=== PATIENT | female | born 1965 | race African-American/Black ===

== ENCOUNTER 2016-07-10 11:11 | Observation (INO) | payer BC ==
[2016-07-10] MEDS ORDERED: ASPIRIN 81 MG TABLET, CHEWABLE PO ONE (11:17)
--- NOTE | 2016-07-10 11:29 | ER Document Report ---
ED Medical Screen (RME) - General Chief Complaint: Chest Pain > 30 Stated Complaint: CHEST PAIN AND SHORTNESS OF BREATH Time Seen by Provider: 07/10/16 11:24 Notes: 50-year-old female with past medical history as recorded including and an STEMI in 2014 who presents with the onset yesterday of some intermittent pressure to her chest. No aggravating relieving factors. No radiation. No calf pain, leg swelling, nausea, vomiting, or fevers. Very minimal shortness of breath. EKG shows no obvious ST elevation. TRAVEL OUTSIDE OF THE [place] IN LAST 30 DAYS: No - Related Data Allergies/Adverse Reactions: sulfamethoxazole [From ] Allergy (Verified 07/10/16 11:14) trimethoprim [From ] Allergy (Verified 07/10/16 11:14) Past Medical History - Past Medical History Cardiac Medical History: Reports: Hx Heart Attack - 04/2014, Hx Hypercholesterolemia, Hx Hypertension Pulmonary Medical History: Reports: Hx Asthma Renal/ Medical History: Denies: Hx Peritoneal Dialysis Musculoskeltal Medical History: Reports Hx Arthritis Past Surgical History: Reports: Hx Breast Surgery - breast reduction, Hx Cardiac Catheterization - w/ failed stent, Hx Gastric Bypass Surgery, Hx Orthopedic Surgery - left shouldar - Immunizations Hx Diphtheria, Pertussis, Tetanus Vaccination: Yes Physical Exam - Vital signs Vitals: Temp Pulse Resp BP Pulse Ox 98.0 F 68 16 136/50 H 99 07/10/16 11:15 07/10/16 11:15 07/10/16 11:15 07/10/16 11:15 07/10/16 11:15 Course - Vital Signs Vital signs: Temp Pulse Resp BP Pulse Ox 98.0 F 68 16 136/50 H 99 07/10/16 11:15 07/10/16 11:15 07/10/16 11:15 07/10/16 11:15 07/10/16 11:15
--- NOTE | 2016-07-10 11:40 | ER Document Report ---
ED General - General Chief Complaint: Chest Pain > 30 Stated Complaint: CHEST PAIN AND SHORTNESS OF BREATH Time Seen by Provider: 07/10/16 11:24 Mode of Arrival: Ambulatory Information source: Patient Notes: 50-year-old female history of CO with no reactions intervention due to the size of the artery presents with complaints of chest pain. Patient notes his chest pain is different from her previous CO. Patient has been intermittent. TRAVEL OUTSIDE OF THE [place] IN LAST 30 DAYS: No - Related Data Allergies/Adverse Reactions: sulfamethoxazole [From ] Allergy (Verified 07/10/16 11:14) trimethoprim [From Octra] Allergy (Verified 07/10/16 11:14) Past Medical History - Social History Smoking Status: Never Smoker Cigarette use (# per day): No Chew tobacco use (# tins/day): No Smoking Education Provided: No Family History: Reviewed & Not Pertinent Patient has suicidal ideation: No Patient has homicidal ideation: No - Past Medical History Cardiac Medical History: Reports: Hx Heart Attack - 04/2014, Hx Hypercholesterolemia, Hx Hypertension Pulmonary Medical History: Reports: Hx Asthma Renal/ Medical History: Denies: Hx Peritoneal Dialysis Musculoskeltal Medical History: Reports Hx Arthritis Past Surgical History: Reports: Hx Breast Surgery - breast reduction, Hx Cardiac Catheterization - w/ failed stent, Hx Gastric Bypass Surgery, Hx Orthopedic Surgery - left shouldar - Immunizations Hx Diphtheria, Pertussis, Tetanus Vaccination: Yes Hx Pneumococcal Vaccination: 02/25/13 Review of Systems - Review of Systems Notes: PHYSICAL EXAMINATION: GENERAL: Well-appearing, well-nourished and in no acute distress. HEAD: Atraumatic, normocephalic. EYES: Pupils equal round and reactive to light, extraocular movements intact, conjunctiva are normal. ENT: Nares patent, oropharynx clear without exudates. Moist mucous membranes. NECK: Normal range of motion, supple without lymphadenopathy LUNGS: Breath sounds clear to auscultation bilaterally and equal. No wheezes rales or rhonchi. HEART: Regular rate and rhythm without murmurs ABDOMEN: Soft, nontender, nondistended abdomen. No guarding, no rebound. No masses appreciated. Female : deferred Musculoskeletal: Normal range of motion, no pitting or edema. No cyanosis. NEUROLOGICAL: Cranial nerves grossly intact. Normal speech, normal gait. Normal sensory, motor exams PSYCH: Normal mood, normal affect. SKIN: Warm, Dry, normal turgor, no rashes or lesions noted. Physical Exam - Vital signs Vitals: Temp Pulse Resp BP Pulse Ox 98.0 F 68 16 136/50 H 99 07/10/16 11:15 07/10/16 11:15 07/10/16 11:15 07/10/16 11:15 07/10/16 11:15 Course - Re-evaluation Re-evalutation: 07/10/16 12:07 Lab work cardiac enzymes are pending at this time, patient will require admission for an ACS rule out given her cardiac history 07/10/16 13:16 Procedure Cedric enzymes EKG are normal. Patient will be admitted to hospital service for rule out - Vital Signs Vital signs: Temp Pulse Resp BP Pulse Ox 98.0 F 68 14 112/78 100 07/10/16 11:15 07/10/16 11:15 07/10/16 13:01 07/10/16 13:01 07/10/16 13:00 - Laboratory Result Diagrams: 07/10/16 11:35 07/10/16 11:35 Laboratory results interpreted by me: 07/10/16 07/10/16 11:35 11:35 Seg Neutrophils % 40.4 L Lymphocytes % 48.8 H Sodium 145.2 H - Diagnostic Test Radiology reviewed: Image reviewed, Reports reviewed - EKG Interpretation by Mt EKG shows normal: Sinus rhythm, [place], Intervals, QRS Complexes Discharge - Discharge Clinical Impression: Chest pain Qualifiers: Chest pain type: unspecified Qualified Code(s): R07.9 - Chest pain, unspecified Coronary artery disease Qualifiers: Coronary Disease-Associated Artery/Lesion type: unspecified vessel or lesion type [place] vs. transplanted heart: [place] heart Associated angina: without angina Qualified Code(s): I25.10 - Atherosclerotic heart disease of [place] coronary artery without angina pectoris Condition: Stable Disposition: ADMITTED OBSERVATION Admitting Provider: Hospitalist Unit Admitted: Telemetry
[2016-07-10 11:51] LABS: ABSOLUTE EOSINOPHILS # (AUTO) 0.3 10^3/uL (0.0-0.6); ABSOLUTE LYMPHOCYTES (AUTO) 2.9 10^3/uL (0.5-4.7); ABSOLUTE MONOCYTES (AUTO) 0.3 10^3/uL (0.1-1.4); ABSOLUTE NEUT (AUTO) 2.4 10^3/uL (1.7-8.2); BASOPHILS % (AUTO) 0.8 % (0-2); EOSINOPHILS % (AUTO) 5.1 % (0-6); HEMATOCRIT 42.4 % (36.0-47.0); HEMOGLOBIN 14.5 g/dL (12.0-15.5); HGB HCT DIFFERENCE 1.1; LYMPHOCYTES % (AUTO) 48.8 % (13-45); MEAN CORPUSCULAR HEMOGLOBIN 32.5 pg (27.0-33.4); MEAN CORPUSCULAR HGB CONC 34.2 g/dL (32.0-36.0); MEAN CORPUSCULAR VOLUME 95 fl (80-97); MONOCYTES % (AUTO) 4.9 % (3-13); RED BLOOD COUNT 4.45 10^6/uL (3.72-5.28); RED CELL DISTRIBUTION WIDTH 11.7 % (11.5-14.0); SEGMENTED NEUTROPHILS % (AUTO) 40.4 % (42-78); WHITE BLOOD COUNT 5.9 10^3/uL (4.0-10.5)
[2016-07-10 12:11] LABS: ANION GAP 9 (5-19); BLOOD UREA NITROGEN 11 mg/dL (7-20); CALCIUM 9.5 mg/dL (8.4-10.2); CARBON DIOXIDE 30 mmol/L (22-30); CHLORIDE 106 mmol/L (98-107); CREATININE RESULT 0.74 mg/dL (0.52-1.25); GLUCOSE 85 mg/dL (75-110); POTASSIUM 3.8 mmol/L (3.6-5.0); SODIUM 145.2 mmol/L (137-145)
[2016-07-10 12:24] LABS: TROPONIN I < 0.012 ng/mL
[2016-07-10] MEDS ORDERED: ONDANSETRON HCL INJ/PF 4 MG/2 ML SDV IV PRN (14:05)
[2016-07-10] MEDS ORDERED: ACETAMINOPHEN 325 MG TABLET PO PRN (14:05)
[2016-07-10] MEDS ORDERED: ZOLPIDEM TARTRATE 5 MG TABLET PO PRN (14:05)
[2016-07-10] MEDS ORDERED: NITROGLYCERIN 0.4 MG/TAB 25 TAB/BOTTLE SL PRN (14:14)
--- NOTE | 2016-07-10 14:31 | PDOC H&P ---
History of Present Illness Admission Date/PCP: 07/10/16 13:36 Patient complains of: Chest pain History of Present Illness: VALARIE MICHELE is a 50 year old female, with history of coronary artery disease, fibromyalgia presents to the hospital because of chest pain of 3 days' duration. It is located on the left side, localized, associated with some shortness of breath on exertion. There is no diaphoresis, nausea or vomiting, palpitation, dizziness or lightheadedness. Pain is more exertional, relieved by rest. Symptoms are worse on and off until earlier today upon waking up, pain recurred, with associated shortness of breath on climbing up steps, patient went to rest but symptoms did not resolve. Patient was concerned and therefore drove herself up-to-date emergency room where she was given aspirin and her symptoms improved. She had a cardiac catheterization years ago and was told she has coronary artery disease but is not amenable to stent on the bottom of her heart. Likewise she had a recent stress test done with her account manager relief in [place], [place] a few months ago. Past Medical History Past Medical History: Medication reconciliation pending verification from the patient's pharmacist Cardiac Medical History: Reports: Myocardial Infarction - 04/2014, Hypertension Pulmonary Medical History: Reports: Asthma Musculoskeltal Medical History: Reports: Arthritis, Fibromyalgia Past Surgical History Past Surgical History: Reports: Cardiac Catheterization - w/ failed stent, Gastric Bypass Surgery, Orthopedic Surgery - left shouldar, Other - Breast reduction Social History Information Source: Patient Smoking Status: Never Smoker Frequency of Alcohol Use: None Hx Recreational Drug Use: No Drugs: None - Advance Directive Resuscitation Status: Full Code Family History Family History: CVA, Malignancy - Stomach cancer and brain cancer, Other - Congestive heart failure Parental Family History Reviewed: Yes Children Family History Reviewed: Yes Sibling(s) Family History Reviewed.: Yes Medication/Allergy Home Medications: Albuterol 2 puff IH Q4H PRN 06/19/11 Cyclobenzaprine HCl [Flexeril 10 Mg Tablet] 10 mg PO TIDP PRN 06/19/11 Amlodipine Bes/Olmesartan Med [Alberto 5-40 mg Tablet] 1 tab PO QHS 05/20/14 Gabapentin 1,200 mg PO QHS 05/20/14 Montelukast Sodium [Singulair] 10 mg PO DAILY 05/20/14 Nitroglycerin 0.4 mg SL ASDIR PRN 05/20/14 Acetaminophen with Codeine [Tylenol #3 Tablet] 1 each PO Q4HP PRN #30 tablet Aspirin [Aspirin 81 mg Chewable Tablet] 07/09/14 Atorvastatin Calcium 40 mg 07/09/14 Nebivolol HCl [Bystolic 5 mg Tablet] 5 mg 07/09/14 Prasugrel Hydrochloride [Effient] 10 mg PO 07/09/14 Promethazine HCl 07/09/14 Ranolazine [Ranexa 500 mg Tab.sr] 07/09/14 Cyclobenzaprine HCl [Flexeril 5 mg Tablet] 5 mg PO TID #15 tablet 10/18/15 Hydrocodone/Acetaminophen [[place] 5-325 mg Tablet] 1 tab PO QID PRN #15 tablet Omeprazole Magnesium [Prilosec Otc] 20 mg PO BID #40 tablet. 11/23/15 Sucralfate [Carafate 1 gm Tablet] 1 gm PO QID #40 tablet 11/23/15 Allergies/Adverse Reactions: sulfamethoxazole [From ] Allergy (Verified 07/10/16 11:14) trimethoprim [From Octra] Allergy (Verified 07/10/16 11:14) Review of Systems Constitutional: ABSENT: chills, fever(s), headache(s), weakness, weight gain, weight loss Eyes: ABSENT: visual disturbances Ears: ABSENT: hearing changes Nose, Mouth, and Throat: ABSENT: mouth pain, sore throat Cardiovascular: PRESENT: chest pain, dyspnea on exertion. ABSENT: edema, orthropnea, palpitations Respiratory: ABSENT: cough, hemoptysis, sputum Gastrointestinal: PRESENT: nausea. ABSENT: abdominal pain, coffee ground emesis , constipation, diarrhea, hematemesis, hematochezia, vomiting Genitourinary: ABSENT: difficulty urinating, dysuria, hematuria Musculoskeletal: ABSENT: joint swelling Integumentary: ABSENT: rash, wounds Neurological: ABSENT: abnormal gait, abnormal speech, confusion, dizziness, focal weakness, syncope Psychiatric: ABSENT: anxiety, depression, homidical ideation, suicidal ideation Endocrine: ABSENT: cold intolerance, heat intolerance, polydipsia, polyuria Hematologic/Lymphatic: ABSENT: easy bleeding, easy bruising Physical Exam Vital Signs: Temp Pulse Resp BP Pulse Ox 98.0 F 68 14 112/78 100 07/10/16 11:15 07/10/16 11:15 07/10/16 13:01 07/10/16 13:01 07/10/16 13:00 General appearance: PRESENT: no acute distress, obese Head exam: PRESENT: atraumatic, normocephalic Eye exam: PRESENT: conjunctiva pink, EOMI, PERRLA. ABSENT: scleral icterus Ear exam: PRESENT: normal external ear exam. ABSENT: drainage Mouth exam: PRESENT: moist, neck supple, tongue midline Throat exam: ABSENT: post pharyngeal erythema, tonsillar erythema Neck exam: ABSENT: carotid bruit, JVD, lymphadenopathy, thyromegaly Respiratory exam: PRESENT: clear to auscultation barron. ABSENT: rales, rhonchi, wheezes Cardiovascular exam: PRESENT: RRR. ABSENT: diastolic murmur, rubs, systolic murmur Pulses: PRESENT: normal dorsalis pedis pul Vascular exam: PRESENT: normal capillary refill GI/Abdominal exam: PRESENT: normal bowel sounds, soft. ABSENT: distended, guarding, mass, organolmegaly, rebound, tenderness Rectal exam: PRESENT: deferred Extremities exam: PRESENT: full ROM. ABSENT: calf tenderness, clubbing, pedal edema Musculoskeletal exam: PRESENT: tenderness - Reproducible over the left chest wall but the patient reports this is a different pain Neurological exam: PRESENT: alert, awake, oriented to person, oriented to place , oriented to time, oriented to situation Psychiatric exam: PRESENT: appropriate affect, normal mood. ABSENT: homicidal ideation, suicidal ideation Skin exam: PRESENT: dry, intact, warm. ABSENT: cyanosis, rash Results Impressions: Chest X-Ray 07/10/16 11:28 IMPRESSION: Thoracic spondylosis with no acute cardiopulmonary disease. Assessment & Plan - Diagnosis (1) Chest pain Qualifiers: Chest pain type: unspecified Qualified Code(s): R07.9 - Chest pain, unspecified Is this a current diagnosis for this admission?: Yes (2) Coronary artery disease Qualifiers: Coronary Disease-Associated Artery/Lesion type: unspecified vessel or lesion type [place] vs. transplanted heart: [place] heart Associated angina: with unstable angina Qualified Code(s): I25.110 - Atherosclerotic heart disease of [place] coronary artery with unstable angina pectoris Is this a current diagnosis for this admission?: Yes (3) Asthma Qualifiers: Asthma severity: unspecified severity Asthma complication type: uncomplicated Qualified Code(s): J45.909 - Unspecified asthma, uncomplicated Is this a current diagnosis for this admission?: Yes (4) Fibromyalgia Is this a current diagnosis for this admission?: Yes (5) Spondylosis Qualifiers: Spinal region: thoracic Spinal osteoarthritis complication: without myelopathy or radiculopathy Qualified Code(s): M47.814 - Spondylosis without myelopathy or radiculopathy, thoracic region Is this a current diagnosis for this admission?: Yes - Time Time Spent: 50 to 70 Minutes - Plan Summary Plan Summary: The patient will be admitted to observation. We will begin aspirin, Nitropaste and as needed sublingual nitroglycerin. Supplemental oxygen will be given, as well as DVT prophylaxis with Lovenox. I will continue the patient's Ranexa. We will consult cardiology for further evaluation. Obtain stress test report as outpatient from her account manager relief. Serial cardiac enzymes 3, obtain a d- dimer. DVT prophylaxis with Lovenox will be given. Further testing depends and initial evaluations outlined above.
[2016-07-10 15:41] LABS: CREATINE KINASE MB 0.53 ng/mL (<4.55)
[2016-07-10 15:43] LABS: TROPONIN I < 0.012 ng/mL
[2016-07-10] MEDS: DOCUSATE SODIUM 100 MG CAPSULE PO SCH (18:49)
[2016-07-10] MEDS: NITROGLYCERIN 2% OINTMENT 1 GM PACKET TP SCH (18:49)
[2016-07-10] MEDS: RANOLAZINE 500 MG TAB.SR.12H PO SCH (21:33)
[2016-07-10] MEDS ORDERED: GABAPENTIN 400 MG CAPSULE PO SCH (22:00)
[2016-07-10] MEDS ORDERED: AMLODIPINE BESYLATE 5 MG TABLET PO SCH (22:00)
[2016-07-10] MEDS ORDERED: LOSARTAN POTASSIUM 50 MG TABLET PO SCH (22:00)
[2016-07-10] MEDS ORDERED: AMLODIPINE BES PO SCH (22:00)
[2016-07-10] MEDS ORDERED: OLMESARTAN MED PO SCH (22:00)
[2016-07-10] MEDS ORDERED: (PENDING PHARMACY ID) (Gabapentin [Gabapentin] 1,200 MG) PO SCH (22:00)
[2016-07-10 22:08] LABS: CREATINE KINASE MB 0.47 ng/mL (<4.55)
[2016-07-10 22:10] LABS: TROPONIN I < 0.012 ng/mL
--- NOTE | 2016-07-10 22:14 | EKG REPORT ---
SEVERITY:- BORDERLINE ECG - SINUS RHYTHM BORDERLINE T ABNORMALITIES, ANT-LAT LEADS : Confirmed by: Kelsy Davis MD 10-Jul-2016 22:13:55
[2016-07-11] MEDS: NITROGLYCERIN 2% OINTMENT 1 GM PACKET TP SCH ×4 (02:13→18:00)
[2016-07-11 03:35] VITALS: BP 111/51
[2016-07-11 03:53] LABS: CREATINE KINASE MB 0.44 ng/mL (<4.55)
[2016-07-11 03:55] LABS: TROPONIN I < 0.012 ng/mL
[2016-07-11] MEDS ORDERED: LANSOPRAZOLE 30 MG TAB.RAP.DR PO SCH (06:00)
[2016-07-11] MEDS ORDERED: ENOXAPARIN SODIUM INJ 40 MG/0.4 ML DISP.SYRIN SUBCUT SCH (08:00)
[2016-07-11] MEDS ORDERED: NEBIVOLOL HCL 5 MG TABLET PO SCH (10:00)
[2016-07-11] MEDS: DOCUSATE SODIUM 100 MG CAPSULE PO SCH ×2 (10:00→18:00)
[2016-07-11] MEDS ORDERED: ATORVASTATIN CALCIUM 40 MG TABLET PO SCH (10:00)
[2016-07-11] MEDS: RANOLAZINE 500 MG TAB.SR.12H PO SCH (10:00)
[2016-07-11] MEDS ORDERED: ASPIRIN 325 MG TABLET PO SCH (10:00)
--- NOTE | 2016-07-11 23:08 | PDOC CONSULTATION ---
Consultation Consult Date: 07/10/16 Attending physician:: HARSH MCKEON MD Consult reason:: Chest pain History of Present Illness Admission Date/PCP: 07/10/16 14:05 Patient complains of: Chest pain History of Present Illness: VALARIE MICHELE is a 50 year old female, with history of coronary artery disease, fibromyalgia presents to the hospital because of chest pain of 3 days' duration. It is located on the left side, localized, associated with some shortness of breath on exertion. There is no diaphoresis, nausea or vomiting, palpitation, dizziness or lightheadedness. Pain is more exertional, relieved by rest. Symptoms are worse on and off until earlier today upon waking up, pain recurred, with associated shortness of breath on climbing up steps, patient went to rest but symptoms did not resolve. Patient was concerned and therefore drove herself up-to-date emergency room where she was given aspirin and her symptoms improved. She had a cardiac catheterization years ago and was told she has coronary artery disease but is not amenable to stent on the bottom of her heart. Likewise she had a recent stress test done with her hose inspector and patcher in [place], [place] a few months ago. Patient on questioning does admit to difficulty falling asleep and staying asleep. She also describes habitual fatigue and tiredness. Past Medical History Cardiac Medical History: Reports: Myocardial Infarction - 04/2014, Hyperlipidema , Hypertension Pulmonary Medical History: Reports: Asthma Musculoskeltal Medical History: Reports: Arthritis, Fibromyalgia Psychiatric Medical History: Reports: Depression Past Surgical History Past Surgical History: Reports: Cardiac Catheterization - w/ failed stent, Gastric Bypass Surgery, Orthopedic Surgery - left shouldar, Other - Breast reduction Social History Smoking Status: Never Smoker Frequency of Alcohol Use: None Hx Recreational Drug Use: No Drugs: None Hx Prescription Drug Abuse: No - Advance Directive Resuscitation Status: Full Code Family History Family History: CVA, Malignancy - Stomach cancer and brain cancer, Other - Congestive heart failure Parental Family History Reviewed: Yes Children Family History Reviewed: Yes Sibling(s) Family History Reviewed.: Yes Medication/Allergy Home Medications: Albuterol Sulfate [Proair HFA] 2 puff IH Q4HP PRN 07/10/16 Amlodipine Bes/Olmesartan Med [Alberto 5-40 mg Tablet] 1 tab PO QHS 07/10/16 Atorvastatin Calcium [Lipitor 40 mg Tablet] 40 mg PO QHS 07/10/16 Cyclobenzaprine HCl [Flexeril 10 mg Tablet] 10 mg PO TIDP PRN 07/10/16 Furosemide [Lasix 20 mg Tablet] 20 mg PO DAILY 07/10/16 Isosorbide Mononitrate [Imdur 30 mg Tablet.er] 30 mg PO QHS 07/10/16 Lorazepam [Ativan 1 mg Tablet] 1 mg PO QHS 07/10/16 Nebivolol HCl [Bystolic 5 mg Tablet] 5 mg PO QHS 07/10/16 Prasugrel Hydrochloride [Effient] 10 mg PO QAM 07/10/16 Ranolazine [Ranexa] 1,000 mg PO BID 07/10/16 Allergies/Adverse Reactions: sulfamethoxazole [From ] Allergy (Verified 07/10/16 11:14) trimethoprim [From ] Allergy (Verified 07/10/16 11:14) Review of Systems Review of Systems: Please see history of present illness and past medical history as wall. Constitutional: No fever or chills reported. Head : No recent chronic headaches, recent head injury. Eyes: No recent eye pain, diplopia, redness, discharge, acute visual changes. Ears: No recent chronic ear pain, acute hearing loss, ear discharge. Oral cavity: No recent ulcerations, bleeding, oral cavity discomfort. Neck: No recent acute neck pain reported. Hematologic: No recent easy bruising or bleeding or hematologic malignancy reported. Lymphatic: No recent lymphatic malignancy, chronic lymphadenopathy reported yet Cardiovascular system review: See history of present illness. Respiratory system review: No recent chronic cough, hemoptysis, blood clots in the lungs reported. Mild Shortness of breath on exertion Gastrointestinal system review: Negative for any recent acute or chronic abdominal pain, hematemesis, melena, recent change in bowel habits. Genitourinary system review: No recent acute or chronic hematuria, flank pain, UTI etc. reported. Skin system review: Negative for any recent abnormal bruising, no rash, no pruritus reported. Neurologic: No prior history of strokes, mini strokes, seizure disorder. Psychologic: No history of major psychosis or major depression reported. Musculoskeletal: Minor aches and pains reported. No acute joint swelling reported. Endocrine: No recent polyuria, polydipsia, recent heat or cold intolerance. Physical Exam Vital Signs: Temp Pulse Resp BP Pulse Ox 98.1 F 61 17 110/56 L 99 07/10/16 20:00 07/10/16 20:00 07/10/16 20:00 07/10/16 20:00 07/10/16 20:00 Intake & Output 07/09/16 07/10/16 07/11/16 06:59 06:59 06:59 Intake Total 10 Balance 10 Exam: GENERAL: well-nourished and in no acute distress. Alert and oriented x3 HEAD: Atraumatic, normocephalic. EYES: Pupils equal round and reactive to light, extraocular movements intact, sclera anicteric, conjunctiva are normal. ENT: TMs normal, nares patent, oropharynx clear without exudates. Moist mucous membranes. No oral ulcerations or bleeding gums noted NECK: supple without lymphadenopathy. Trachea is central. No cervical or axillary lymphadenopathy noted. Carotids are 2+, JVD WNL LUNGS: Respiration seems nonlabored, no significant accessory muscle action noted. Breath sounds clear to auscultation bilaterally and equal noted. No wheezes rales or rhonchi noted. No significant dullness noted on percussion. CHEST: Palpation of the chest wall shows no significant chest wall tenderness. No other significant abnormalities noted. Chest wall tenderness noted on palpation. 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 ABDOMEN: Soft, no significant tenderness appreciated, normoactive bowel sounds. No guarding, no rebound. No rigidity noted . No masses appreciated. EXTREMITIES: Pedal pulses are 1-2+, no calf tenderness noted. No clubbing or cyanosis.trace to 1+ pedal edema noted NEUROLOGICAL: Focused neurological exam showed no significant neurologic deficit. Normal speech, no focal weakness appreciated. PSYCH: Normal mood, normal affect. Judgment and insight within normal limits. SKIN: No significant ecchymosis, rash, ulcerations or signs of pruritus noted. MUSCULOSKELETAL EXAM: No significant joint swelling noted. Results Laboratory Results: 07/10/16 07/10/16 14:40 14:45 Creatine Kinase 83 CK-MB (CK-2) 0.53 Troponin I < 0.012 Impressions: Chest X-Ray 07/10/16 11:28 IMPRESSION: Thoracic spondylosis with no acute cardiopulmonary disease. Assessment & Plan - Diagnosis (1) Asthma Qualifiers: Asthma severity: unspecified severity Asthma complication type: uncomplicated Qualified Code(s): J45.909 - Unspecified asthma, uncomplicated Is this a current diagnosis for this admission?: Yes (2) Sleep-disordered breathing Is this a current diagnosis for this admission?: Yes (3) Chest pain Qualifiers: Chest pain type: unspecified Qualified Code(s): R07.9 - Chest pain, unspecified Is this a current diagnosis for this admission?: Yes (4) Coronary artery disease Qualifiers: Coronary Disease-Associated Artery/Lesion type: unspecified vessel or lesion type [place] vs. transplanted heart: [place] heart Associated angina: with unstable angina Qualified Code(s): I25.110 - Atherosclerotic heart disease of [place] coronary artery with unstable angina pectoris Is this a current diagnosis for this admission?: Yes (5) Fibromyalgia Is this a current diagnosis for this admission?: Yes - Notes Notes: Chest pain: Patient has known CAD. She had a recent nuclear stress test and also a heart catheterization about 2 years ago. Patient was told to have an non -revascularizable lesion. Will optimize medical management. If patient has recurrent chest pain or positive EKG are positive enzymes, consider referring her for heart catheterization. Discussed with the patient that there could be multitudes of because of chest pain. This includes musculoskeletal pain from fibromyalgia, distal esophagitis, gastroesophageal reflux, referred pain from elsewhere. Fibromyalgia: Patient claims this is under satisfactory control. Obesity: Patient has significant obesity. Advised patient for weight loss. Asthma: Under satisfactory control. Patient gives history suggestive of Sleep apnea syndrome. Patient advised to pursue a sleep study. - Time Time Spent: 30 to 50 Minutes - CODE STATUS was discussed, patient remains full code. Surrogate decision-maker patient's eldest daughter. Multiple medical problems were addressed. More than 50% of the time spent coordinating care, discussing management plans with involved caregivers. Management plans discussed with involved personnels. Medical decision making was of moderate to high complexity, patient's has multiple severe comorbidities. Medications reviewed and adjusted accordingly: Yes
[2016-07-12] MEDS ORDERED: LANSOPRAZOLE 30 MG TAB.RAP.DR PO SCH (08:00)
--- NOTE | 2016-07-12 09:46 | DISCHARGE SUMMARY E ---
Discharge Summary NAME: VALARIE MICHELE : 1965 AGE: 50Y ADMITTED: 07/10/2016 DISCHARGED: 07/11/2016 FINAL DIAGNOSES: 1. Chest pain probably noncardiac. 2. Coronary artery disease. 3. Asthma. 4. Fibromyalgia. 5. 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 INSTRUCTIONS: Diet: Cardiac prudent. Activity: As tolerated. Followup with primary care physician in 1 week. Follow up with Dr. Desai in 1-2 weeks. Echocardiogram as outpatient with Dr. Desai. MEDICATIONS: The patient is going to continue taking home medications includin. Ativan 1 mg p.o. at bedtime. 2. Alberto 5/40 1 tablet at bedtime. 3. Bystolic 5 mg p.o. at bedtime. 4. Effient 10 mg orally daily. 5. Flexeril 10 mg 3 times a day as needed. 6. Lasix 20 mg p.o. daily. 7. Lipitor 40 mg p.o. at bedtime. 8. ProAir 2 puffs inhalation every 4 hours as needed. 9. Ranexa 1000 mg p.o. twice a day. Additional medications to take: 10. Imdur 30 mg p.o. twice daily. 11. Prevacid 30 mg p.o. twice a day. REASON FOR ADMISSION: Chest pain. HISTORY OF PRESENT ILLNESS/SIGNIFICANT FINDINGS: The patient is a 50-year-old female with history of coronary artery disease and fibromyalgia who presents to the hospital because of chest pain of 3 days' duration. It is left-sided in nature that is localized, and reportedly it was exertional. The patient drove herself to the Emergency Room. She was given aspirin, and her symptoms improved. She had catheterization in the past and was told that the coronary artery disease is not amenable to stent on the bottom of her heart. PHYSICAL EXAMINATION: VITAL SIGNS: On examination, blood pressure is 112/78. Pulse 68. Respirations 14. Temperature 98 degrees Fahrenheit. CHEST: The patient has a reproducible chest wall pain on the left side. INITIAL LABORATORY: Chest x-ray: Thoracic spondylosis. Troponin negative. The patient was subsequently admitted for further management. CONSULTATIONS: Dr. Desai. HOSPITAL COURSE: The patient was admitted to the medical floor with telemetry. The patient was placed on supplemental oxygen. Nitroglycerin and aspirin were added to her treatment. She was continued on her Effient. Her Ranexa was likewise continued. Cardiology was consulted for further evaluation. Cardiology added Prevacid 30 mg p.o. twice a day. The patient's chest pain resolved. Serial cardiac enzymes were negative for myocardial infarction. The patient was cleared by Cardiology service to be discharged. Recommended to add Prevacid to her treatment regimen and increase the Imdur dose. The rest of the hospital stay is unremarkable. She was eventually discharged home improved with the above instructions. DICTATING PHYSICIAN: FELICITY MARTINEZ M.D. [id number] PHY#: [id number] ID: [id number] JOB#: [id number] ACCT: [id number] cc:FELICITY MARTINEZ M.D., ROBERT >
--- NOTE | 2016-07-12 18:36 | PDOC PROGRESS REPORT ---
Subjective Progress Note for:: 07/11/16 Subjective:: Patient seems to be doing better with gradual improvement. Patient had mild chest discomfort last night and this morning. Patient denying any PND, orthopnea. Patient denied any sustained palpitations, dizziness, syncope, near syncope. Patient denying any fever chills. Patient denying any other significant discomfort. Patient is maintaining sinus rhythm. Review of systems: Rest review of systems negative. Medications: Medications have been reviewed. Physical Exam Vital Signs: Temp Pulse Resp BP Pulse Ox 97.6 F 52 L 18 111/51 L 95 07/11/16 03:35 07/11/16 03:35 07/11/16 03:35 07/11/16 03:35 07/11/16 03:35 Intake & Output 07/10/16 07/11/16 07/12/16 06:59 06:59 06:59 Intake Total 15 Balance 15 Exam: GENERAL: well-nourished and in no acute distress. Alert and oriented x3 HEAD: Atraumatic, normocephalic. EYES: Pupils equal round and reactive to light, extraocular movements intact, sclera anicteric, conjunctiva are normal. ENT: TMs normal, nares patent, oropharynx clear without exudates. Moist mucous membranes. No oral ulcerations or bleeding gums noted NECK: supple without lymphadenopathy. Trachea is central. No cervical or axillary lymphadenopathy noted. Carotids are 2+, JVD WNL LUNGS: Respiration seems nonlabored, no significant accessory muscle action noted. Breath sounds clear to auscultation bilaterally and equal noted. No wheezes rales or rhonchi noted. No significant dullness noted on percussion. CHEST: Palpation of the chest wall shows no significant chest wall tenderness. No other significant abnormalities noted. 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 ABDOMEN: Soft, no significant tenderness appreciated, normoactive bowel sounds. No guarding, no rebound. No rigidity noted . No masses appreciated. EXTREMITIES: Pedal pulses are 1-2+, no calf tenderness noted. No clubbing or cyanosis.trace to 1+ pedal edema noted NEUROLOGICAL: Focused neurological exam showed no significant neurologic deficit. Normal speech, no focal weakness appreciated. PSYCH: Normal mood, normal affect. Judgment and insight within normal limits. SKIN: No significant ecchymosis, rash, ulcerations or signs of pruritus noted. MUSCULOSKELETAL EXAM: No significant joint swelling noted. Results Laboratory Results: 07/10/16 07/10/16 07/10/16 14:40 14:45 21:22 Creatine Kinase 83 76 CK-MB (CK-2) 0.53 Troponin I < 0.012 07/10/16 07/11/16 07/11/16 21:22 03:11 03:11 Creatine Kinase 59 CK-MB (CK-2) 0.47 0.44 Troponin I < 0.012 < 0.012 Impressions: Chest X-Ray 07/10/16 11:28 IMPRESSION: Thoracic spondylosis with no acute cardiopulmonary disease. Assessment & Plan - Diagnosis (1) Chest pain Qualifiers: Chest pain type: unspecified Qualified Code(s): R07.9 - Chest pain, unspecified Is this a current diagnosis for this admission?: Yes (2) Coronary artery disease Qualifiers: Coronary Disease-Associated Artery/Lesion type: unspecified vessel or lesion type [place] vs. transplanted heart: [place] heart Associated angina: with unstable angina Qualified Code(s): I25.110 - Atherosclerotic heart disease of [place] coronary artery with unstable angina pectoris Is this a current diagnosis for this admission?: Yes (3) Fibromyalgia Is this a current diagnosis for this admission?: Yes (4) Sleep-disordered breathing Is this a current diagnosis for this admission?: Yes (5) Asthma Qualifiers: Asthma severity: unspecified severity Asthma complication type: uncomplicated Qualified Code(s): J45.909 - Unspecified asthma, uncomplicated Is this a current diagnosis for this admission?: Yes - Notes Notes: Have placed patient on Ranexa 1000 mg p.o. twice daily, also started patient on double dose proton pump inhibitor. Will also start patient on Imdur. At this point plans are to maximize medical therapy. Should patient still continued to have chest pain, we may need to consider a repeat heart catheterization. This was explained to the patient. Discussed that treatment of sleep apnea often helps with coronary artery disease. Patient encouraged to follow-up with me. So far all cardiac enzymes are negative. I was told later on by the hospitalist that the patient wanted to go home. Feel that based on current evaluation, it safe for patient to be discharged. 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 - Time Time with patient: Greater than 35 minutes - Multiple medication changes were performed. Management plans were discussed. Approximately total time used was 40 minutes. Also discussed follow-up arrangements. Medications reviewed and adjusted accordingly: Yes
== END 2016-07-11 16:00 | disposition home or self-care (01) ==
LOC: ER 11:11 → EH 13:36 → UNDOADMOB 13:36 → 5 14:05 → EH 14:28
PROVIDERS: ADMIT Family Medicine; ATTEND Family Medicine
DX: R07.89 Other chest pain (principal); I25.110 Atherosclerotic heart disease of native coronary artery with unstable angina pectoris; J45.909 Unspecified asthma, uncomplicated; M79.7 Fibromyalgia; M47.814 Spondylosis without myelopathy or radiculopathy, thoracic region; R53.83 Other fatigue; G47.00 Insomnia, unspecified; G47.30 Sleep apnea, unspecified; E66.9 Obesity, unspecified; R11.0 Nausea; M19.90 Unspecified osteoarthritis, unspecified site; I25.2 Old myocardial infarction; Z79.899 Other long term (current) drug therapy; Z79.02 Long term (current) use of antithrombotics/antiplatelets; Z98.84 Bariatric surgery status; Z98.890 Other specified postprocedural states; Z82.49 Family history of ischemic heart disease and other diseases of the circulatory system; Z68.37 Body mass index [BMI] 37.0-37.9, adult
CPT/HCPCS: 93005; 99285; 36415 ×2; 82553 ×2; 82550 ×2; 84703; 85025; 80048; 84484 ×2; 85379; 83880; 71020; 93010; G0378 ×2; J1650; J3490

== ENCOUNTER 2017-05-15 06:34 | Day surgery (SDC) | payer BC ==
[2017-05-15] MEDS ORDERED: FENTANYL CITRATE INJ/PF 250 MCG/5 ML AMPULE ONE (06:46)
[2017-05-15] MEDS ORDERED: MIDAZOLAM 2 MG/2 ML INJ ONE (06:46)
[2017-05-15] MEDS ORDERED: LIDOCAINE 0.5% INJ-PF (5 MG/ML) 50 ML SDV ONE (06:47)
[2017-05-15] MEDS ORDERED: PROPOFOL INJ 200 MG/20 ML VIAL IV ONE (06:47)
[2017-05-15] MEDS ORDERED: CEFAZOLIN 1 GM/D5W RTU 1 GM/50 ML RTUPB IV PRN (06:48)
[2017-05-15] MEDS ORDERED: ACETAMINOPHEN 0 ML IV ONE (06:48)
[2017-05-15] MEDS ORDERED: BUPIVACAINE HCL 0.5 % INJ/PF 30 ML SDV ONE (07:22)
[2017-05-15] MEDS ORDERED: LIDOCAINE 2% INJ (20 MG/ML) 20 ML MDV ONE (07:22)
[2017-05-15] MEDS ORDERED: BUPIVACAINE INJ/PF LIPOSOME/PF 266 MG/20 ML SDV ONE (07:23)
--- NOTE | 2017-05-15 09:23 | SURGICARE DISCHARGE SUMMARY E ---
[facility] Discharge Summary NAME: VALARIE MICHELE AGE: 51Y ADMITTED: 05/15/2017 DISCHARGED: 05/15/2017 PREOPERATIVE DIAGNOSIS: Hallux abductovalgus, right foot. POSTOPERATIVE DIAGNOSIS: Hallux abductovalgus, right foot. HOSPITAL COURSE: The patient was admitted with a chief complaint of painful first metatarsophalangeal joint with bunion on her right foot. She stated it had been getting worse over the past several years, and that she is having pain whenever she wore her shoes or with walking around. She tried conservative therapy, but it was unsuccessful and patient desired to have this problem surgically corrected. The patient's surgery had to be canceled due to a problem with the air flow in the operating room. The patient was discharged from [facility] and rescheduled for the following week. DICTATING PHYSICIAN: MINA DEAN D.P.M. [id number] PHY#: [id number] ID: [id number] JOB#: [id number] ACCT: [id number] cc:MINA DEAN DPM >
== END 2017-05-15 08:16 | disposition home or self-care (01) ==
LOC: SC 06:34
PROVIDERS: ATTEND Podiatrist Foot Surgery
DX: M20.11 Hallux valgus (acquired), right foot (principal); Z53.9 Procedure and treatment not carried out, unspecified reason
CPT/HCPCS: C9290; J0131; J0690; J2250; J2704; J3010; J3490

== ENCOUNTER 2017-05-22 06:27 | Day surgery (SDC) | payer BC ==
[~2017-05-22 06:27] MED LIST: CEFAZOLIN 1 GM/D5W RTU 1 GM/50 ML RTUPB IV PRN; LACTATED RINGERS 1000 ML IV PRN; LIDOCAINE 0.5% INJ-PF (5 MG/ML) 50 ML SDV SUBCUT PRN
[2017-05-22] MEDS ORDERED: BUPIVACAINE HCL 0.5 % INJ/PF 30 ML SDV ONE (07:01)
[2017-05-22] MEDS ORDERED: POLYMYXIN B SULFATE INJ 500000 UNIT VIAL ONE (07:01)
[2017-05-22] MEDS ORDERED: LIDOCAINE 2% INJ (20 MG/ML) 20 ML MDV ONE (07:01)
[2017-05-22] MEDS ORDERED: BACITRACIN INJ 50,000 UNIT VIAL ONE (07:02)
[2017-05-22] MEDS ORDERED: LIDOCAINE 2% INJ-PF (20 MG/ML) 10 ML AMPUL ONE (07:03)
[2017-05-22] MEDS ORDERED: FENTANYL CITRATE INJ/PF 100 MCG/2 ML AMPUL ONE (07:03)
[2017-05-22] MEDS ORDERED: MIDAZOLAM 2 MG/2 ML INJ ONE (07:03)
[2017-05-22] MEDS ORDERED: DEXMEDETOMIDINE INJ 80 MCG/20 ML VIAL IV ONE (07:03)
[2017-05-22] MEDS ORDERED: PROPOFOL INJ 200 MG/20 ML VIAL IV ONE (07:04)
[2017-05-22] MEDS ORDERED: NORMAL SALINE INJ/PF 0.9% 10 ML SDV ONE (07:05)
[2017-05-22] MEDS ORDERED: DEXAMETHASONE SOD PHOS INJ 10 MG/1 ML VIAL ONE (07:34)
[2017-05-22] MEDS ORDERED: ONDANSETRON HCL INJ/PF 4 MG/2 ML SDV ONE (07:34)
[2017-05-22] MEDS ORDERED: ACETAMINOPHEN 100 ML IV ONE (07:54)
[2017-05-22] MEDS ORDERED: SCOPOLAMINE HYDROBROMIDE 1.5 MG PATCH.TD72 TD PRN (07:59)
[2017-05-22] MEDS: BUPIVACAINE INJ/PF LIPOSOME/PF 266 MG/20 ML SDV ONE ×2 (09:35)
--- NOTE | 2017-05-22 11:34 | SURGICARE OPERATIVE REPORT E ---
[facility] NAME: VALARIE MICHELE AGE: 51Y DATE OF SURGERY: 05/22/2017 ROOM: PREOPERATIVE DIAGNOSIS: Hallux abductovalgus, right foot. POSTOPERATIVE DIAGNOSIS: Hallux abductovalgus with degenerative joint disease, right foot. SURGICAL PROCEDURE: Palomo bunionectomy with total implant, Silastic implant, right foot. SURGEON: MINA DEAN DPM NOVELTY TWISTER TENDER: ELISHA GUTIERREZ DPM PROCEDURE: Following induction of IV regional local anesthesia, the right foot and leg were prepped and draped in the usual sterile manner. A pneumatic tourniquet is placed around the right ankle and inflated to 250 mmHg after exsanguination of the limb via Esmarch bandage. The following surgical procedure was then performed: Palomo bunionectomy with total Silastic implant, right foot. Attention was directed to the first metatarsophalangeal joint of the right foot where approximately a 6 cm dorsal linear incision was made. The incision was deepened via sharp dissection. All bleeders were clamped and bovied as necessary for the purposes of hemostasis. A capsular incision was made in the same manner as the original skin incision, and it was made medial to the extensor hallucis longus tendon. The capsule was reflected medially and laterally from the bone. The first metatarsophalangeal joint was then inspected. It was noted that there was an erosion in the cartilage at the head of the first metatarsal and also in the base of the proximal phalanx. The hypertrophied bone at the medial eminence of the first metatarsal head was osteotomized parallel to the long axis bone and removed in toto from the wound. The base of the proximal phalanx was osteotomized perpendicular to the long axis of the bone approximately 1 cm distal to the joint and removed with release from the soft tissue attachments and removed in toto from the wound. Attention was directed to the head of the metatarsal utilizing a eMindful saw. The cartilaginous cap was osteotomized perpendicular to the long axis of the bone and removed in toto from the wound. It was noted at this time that the tibial and fibular sesamoid were fused together and they were freed from the plantar aspect of the metatarsal utilizing a McGlamry elevator, but that they would not retract because of the fact that they were fused together. It was decided then to remove the tibial and fibular sesamoids. This was done via sharp dissection. The flexor hallucis longus tendon was identified, and it was noted that it was intact. The head of the first metatarsal and the base of the proximal phalanx were both reamed utilizing a combination of a side cutting bur, a [employer] rasp, and the handheld reamers that come with the set. Both sites were reamed until the holes were large enough to accept an OS with grommets total Silastic implant. An x-ray was taken with the O sizer, and it was noted that the sizer was the correct size and that the first metatarsophalangeal joint was in a good anatomical position. The area was then flushed with copious amounts of a saline solution. Bone wax is applied to the medial and dorsal aspects of the first metatarsal head. A size OS with grommets total Silastic implant was then implanted proximally and distally across the first metatarsophalangeal. It was noted that the osteotomy was seated properly and the grommets were seated properly. The capsule was then coapted and maintained utilizing simple interrupted sutures of 3-0 Vicryl. The extensor hallucis longus tendon was tight, and it was determined that it needed to be lengthened. This was done by performing alternating medial and lateral incisions that went alf across the tendon along the length of the tendon proximally 1 cm apart. The subcutaneous tissue was then coapted and maintained utilizing simple interrupted sutures of 4-0 Vicryl. Twenty mL of Exparel was then injected along the length of the incision subcutaneously. Another x-ray was taken. It was noted that the first metatarsophalangeal joint was in the correct anatomical position and that the grommets were seated properly and that the implant was in good position. The skin was then coapted and maintained utilizing a horizontal mattress sutures of 5-0 nylon. Dry sterile dressing was then applied consisting of 0wen silk, 4 x 4's, Conform, Kerlix, and Coban. The pneumatic tourniquet was released. It was noted that all digits were warm and viable, and the patient was transferred to the recovery room. DICTATING PHYSICIAN: MINA DEAN D.P.M. [id number] PHY#: [id number] ID: [id number] JOB#: [id number] ACCT: [id number] cc:MINA DEAN DPM > JAMI
--- NOTE | 2017-05-22 15:15 | RADIOLOGY REPORT (SQ) ---
EXAM DESCRIPTION: NO CHG FLUORO; FOOT RIGHT 2 VIEWS COMPLETED DATE/TIME: 05/22/2017 3:00 pm REASON FOR STUDY: RT FOOT VIZCARRA BUNIONECTOMY/IMPLANT M20.11 HALLUX VALGUS (ACQUIRED), RIGHT FOOT COMPARISON: None. FLUOROSCOPY TIME: 4 seconds 2 images saved to PACS. TECHNIQUE: Intra-operative images acquired during surgical procedure to evaluate progress. NUMBER OF IMAGES: 2 LIMITATIONS: None. FINDINGS: Selected images from prosthetic placement 1st metatarsophalangeal joint. IMPRESSION: IMAGE(S) OBTAINED DURING PROCEDURE. COMMENT: Quality ID 145: Final reports for procedures using fluoroscopy that document radiation exp osure indices, or exposure time and number of fluorographic images (if radiation exposure indices are not available) Please consult full operative report of the attending physician for description of the procedure. TECHNICAL DOCUMENTATION: JOB ID: [id number] [employer]- All Rights Reserved Reading location - IP/workstation name: [email or web address]
--- NOTE | 2017-05-22 15:15 | RADIOLOGY REPORT (SQ) ---
EXAM DESCRIPTION: NO CHG FLUORO; FOOT RIGHT 2 VIEWS COMPLETED DATE/TIME: 05/22/2017 3:00 pm REASON FOR STUDY: RT FOOT VIZCARRA BUNIONECTOMY/IMPLANT M20.11 HALLUX VALGUS (ACQUIRED), RIGHT FOOT COMPARISON: None. FLUOROSCOPY TIME: 4 seconds 2 images saved to PACS. TECHNIQUE: Intra-operative images acquired during surgical procedure to evaluate progress. NUMBER OF IMAGES: 2 LIMITATIONS: None. FINDINGS: Selected images from prosthetic placement 1st metatarsophalangeal joint. IMPRESSION: IMAGE(S) OBTAINED DURING PROCEDURE. COMMENT: Quality ID 145: Final reports for procedures using fluoroscopy that document radiation exp osure indices, or exposure time and number of fluorographic images (if radiation exposure indices are not available) Please consult full operative report of the attending physician for description of the procedure. TECHNICAL DOCUMENTATION: JOB ID: [id number] [employer]- All Rights Reserved Reading location - IP/workstation name: [email or web address]
--- NOTE | 2017-05-22 17:19 | SURGICARE DISCHARGE SUMMARY E ---
[facility] Discharge Summary NAME: VALARIE MICHELE AGE: 51Y ADMITTED: 05/22/2017 DISCHARGED: 05/22/2017 PREOPERATIVE DIAGNOSIS: Hallux abductovalgus, right foot. SURGICAL PROCEDURE: Palomo bunionectomy with insertion of total Silastic implant, right foot. POSTOPERATIVE DIAGNOSIS: Hallux abductovalgus with degenerative joint disease, right foot. SURGEON: Mina Dean DPM SOIL SCIENTIST: Chun Matamoros DPM HOSPITAL COURSE: The patient was admitted to [facility] with chief complaint of painful first metatarsophalangeal joint with a bunion. The patient had undergone conservative therapy, but she was still having pain whenever she walked and wore her shoe. She underwent the above surgical procedure without any complications and was transferred to the recovery room. She was discharged with an ice pack with a surgical shoe, postoperative instructions, and postoperative prescriptions consisting of Percocet 5/325 mg, number 60, Phenergan 25 mg, number 30, and cephalexin 500 mg, number 4. She was given a followup appointment at the doctor's office in 1 week, and the patient was discharged from [facility]. DICTATING PHYSICIAN: MINA DEAN D.P.M. [id number] PHY#: [id number] ID: [id number] JOB#: [id number] ACCT: [id number] cc:MINA DEAN DPM > MTDD
== END 2017-05-22 11:15 | disposition home or self-care (01) ==
LOC: SC 06:27
PROVIDERS: ATTEND Podiatrist Foot Surgery
DX: M20.11 Hallux valgus (acquired), right foot (principal); J45.909 Unspecified asthma, uncomplicated; I25.10 Atherosclerotic heart disease of native coronary artery without angina pectoris; I25.2 Old myocardial infarction; M10.9 Gout, unspecified; M79.7 Fibromyalgia; E66.9 Obesity, unspecified; Z79.899 Other long term (current) drug therapy; Z79.51 Long term (current) use of inhaled steroids; Z68.37 Body mass index [BMI] 37.0-37.9, adult; Z91.040 Latex allergy status; Z88.1 Allergy status to other antibiotic agents
CPT/HCPCS: 73620; 28292; J2250; J3490 ×4; J0690; J3010; J2405; J2704; J1100; J0131; C9290; 01480

== ENCOUNTER 2017-06-24 07:05 | Emergency (ER) | payer BC ==
[2017-06-24] MEDS ORDERED: IPRATROPIUM/ALBUTEROL 0.5-2.5 MG/3 ML AMPUL NEB ONE (07:41)
[2017-06-24] MEDS ORDERED: ASPIRIN 81 MG TABLET, CHEWABLE PO ONE (07:41)
[2017-06-24] MEDS ORDERED: NITROGLYCERIN 2% OINTMENT 1 GM PACKET TP ONE (07:45)
--- NOTE | 2017-06-24 07:53 | ER Document Report ---
ED General - General Chief Complaint: Chest Congestion Stated Complaint: CHEST PAIN, DIFFICULTY BREATHING Time Seen by Provider: 06/24/17 07:26 Notes: 51-year-old female with history of coronary artery disease presents to the ER complaining of chest discomfort. The patient has a history of fibromyalgia and [place] in 2015. She usually gets care by [facility]. The patient sees Dr. Oconnell there. The patient stated Saturday she began having some tightness in her chest rating to her left shoulder. Feels similar to her prior episodes. She stated she felt very sweaty at work on Saturday she went home and placed some nitro paste/patch on. She states she was doing better but was having nagging discomfort 5/10 on and off all weekend. Patient did have some nausea and vomiting yesterday. She had one loose bowel movement. She denies fever chills denies abdominal pain. States she just is not feeling well and the nitroglycerin now seems to not be helping. She denies any calf pain or leg swelling. He did have a recent podiatry surgery last month of her right foot. He denies any fever chills or cough. TRAVEL OUTSIDE OF THE [place] IN LAST 30 DAYS: No - Related Data Allergies/Adverse Reactions: bacitracin [From Neosporin ([id number])] Allergy (Intermediate, Verified 07:06) RED, PUFFY AT SITE latex Allergy (Intermediate, Verified 06/24/17 07:06) RED, SWELLS WITH PROLONGED CONTACT. neomycin [From Neosporin ([id number])] Allergy (Intermediate, Verified 07:06) RED, PUFFY AT SITE polymyxin B [From Neosporin ([id number])] Allergy (Intermediate, Verified 07:06) RED, PUFFY AT SITE sulfamethoxazole [From Septra] Allergy (Intermediate, Verified 06/24/17 07:06) HIVES, INTCHING trimethoprim [From Septra] Allergy (Intermediate, Verified 06/24/17 07:06) HIVES, ITCHING adhesive tape Allergy (Mild, Verified 06/24/17 07:06) RED AND PEELS SKIN WITH PROLONGED CONTACT Past Medical History - Social History Smoking Status: Unknown if Ever Smoked Family History: CVA, Malignancy - Stomach cancer and brain cancer, Other - Congestive heart failure - Past Medical History Cardiac Medical History: Reports: Hx Heart Attack - 04/2014 STENT PLACEMENT UNSUCCESSFUL, Hx Hypercholesterolemia, Hx Hypertension - MEDICATED Pulmonary Medical History: Reports: Hx Asthma - NO HOSPITALIZATIONS Neurological Medical History: Denies: Hx Cerebrovascular Accident, Hx Seizures Renal/ Medical History: Denies: Hx Peritoneal Dialysis GI Medical History: Denies: Hx Hepatitis, Hx Hiatal Hernia, Hx Ulcer Musculoskeltal Medical History: Reports Hx Arthritis, Reports Hx Fibromyalgia Psychiatric Medical History: Reports: Hx Depression Infectious Medical History: Denies: Hx Hepatitis Past Surgical History: Reports: Hx Breast Surgery - breast reduction, Hx Cardiac Catheterization - w/ failed stent, Hx Gastric Bypass Surgery, Hx Orthopedic Surgery - left shouldar, Other - Breast reduction. Denies: Hx Hysterectomy, Hx Mastectomy, Hx Open Heart Surgery, Hx Pacemaker - Immunizations Hx Diphtheria, Pertussis, Tetanus Vaccination: Yes Hx Pneumococcal Vaccination: 02/25/13 Review of Systems - Review of Systems Constitutional: denies: Chills, Fever EENT: denies: Throat pain, Difficulty swallowing, Throat swelling, Mouth pain Cardiovascular: Chest pain, Dyspnea. denies: Palpitations, Heart racing, Orthopnea Respiratory: Short of breath. denies: Cough, Hurts to breathe, Hemoptysis, Wheezing Gastrointestinal: Diarrhea, Nausea, Vomiting. denies: Constipation, Blood streaked bowels, Black stools, Rectal bleeding Skin: denies: Rash -: Yes All other systems reviewed and negative Physical Exam - Vital signs Vitals: Temp Pulse Resp BP Pulse Ox 98.6 F 66 16 146/85 H 95 06/24/17 07:15 06/24/17 07:15 06/24/17 07:15 06/24/17 07:15 06/24/17 07:15 - Notes Notes: GENERAL_APPEARANCE: well_nourished, alert, cooperative VITALS: reviewed, see vital signs table. HEAD: no_swelling\tenderness on the head. EYES: PERRL, EOMI, conjunctiva_clear. NOSE: no_nasal_discharge. MOUTH: (-)decreased moisture. THROAT: no_tonsilar_inflammation, no_airway_obstruction. no_lymphadenopathy NECK: supple, no_neck_tenderness, (-)thyromegaly. BACK: no_back_tenderness. CHEST_WALL: no_chest_tenderness. LUNGS: no_wheezing, no_rales, no_rhonchi, (-)accessory muscle use, good air exchange bilateral. HEART: normal_rate, normal_rhythm, very slight 1/6 systolic ejection murmur ABDOMEN: normal_BS, soft, no_abd_tenderness, (-)guarding, (-)rebound, no_ organomegaly, no_abd_masses. EXTREMITIES: No calf pain or leg swelling Homans sign negative bilateral, patient's right foot is in a walking shoe and has postoperative great toe surgery looks clean dry and intact SKIN: warm, dry, good_color, no_rash. MENTAL_STATUS: speech_clear, oriented_X_3, normal_affect, responds_ appropriately to questions. Course - Re-evaluation Re-evalutation: 06/24/17 07:52 51-year-old female arrives complaining of chest discomfort. She will be given aspirin and have Nitropaste placed. The patient does have a history of coronary artery disease she had a small likely diagonal branch could not be stented in 2014. In 2016 she had a stay here for chest pain. She has been doing well but now is having discomfort again. She has been taking her nitroglycerin at home and initially was helping but now it is not her discomfort here as 510. Will work her up for ACS. 06/24/17 08:15 The patient is supposed to be taking Effient but approximately a month and a half ago she had surgery on her great toe and she stopped it but never restarted it. The patient has been without this for about a month and a half. 06/24/17 10:26 Patient is feeling better after some Nitropaste. I spoke with the patient she had been admitted here before by Dr. Desai. She refuses to be admitted here and wants to go back to [facility]. I have contacted [facility]. So far troponin has been negative. 06/24/17 11:28 The patient was accepted at [facility] by Dr. Morales Oconnell. They anticipate charge this afternoon. - Vital Signs Vital signs: Temp Pulse Resp BP Pulse Ox 98.6 F 66 18 132/73 H 97 06/24/17 07:15 06/24/17 07:15 06/24/17 08:01 06/24/17 08:01 06/24/17 08:01 - Laboratory Result Diagrams: 06/24/17 07:30 06/24/17 07:30 Laboratory results interpreted by me: 06/24/17 06/24/17 06/24/17 07:30 07:30 07:56 Lymphocytes % 45.6 H Sodium 148.2 H Potassium 3.2 L Chloride 108 H Ur Leukocyte Esterase MODERATE H Urine Ascorbic Acid 20 H - EKG Interpretation by Me EKG shows normal: Sinus rhythm Rate: Normal Rhythm: NSR Additional EKG results interpreted by me: 06/24/17 08:01 Twelve-lead EKG shows a sinus rhythm at 63 there is chronic changes noted but no acute ST abnormalities unchanged compared to old Discharge - Discharge Clinical Impression: Chest pain Qualifiers: Chest pain type: unspecified Qualified Code(s): R07.9 - Chest pain, unspecified Condition: Good Disposition: [facility] Referrals: GANGA CORCORAN MD [Primary Care Provider] - Follow up as needed
[2017-06-24 07:57] LABS: ABSOLUTE BASOPHILS # (AUTO) 0.1 10^3/uL (0.0-0.2); ABSOLUTE EOSINOPHILS # (AUTO) 0.2 10^3/uL (0.0-0.6); ABSOLUTE LYMPHOCYTES (AUTO) 2.7 10^3/uL (0.5-4.7); ABSOLUTE MONOCYTES (AUTO) 0.4 10^3/uL (0.1-1.4); ABSOLUTE NEUT (AUTO) 2.6 10^3/uL (1.7-8.2); EOSINOPHILS % (AUTO) 3.5 % (0-6); HEMATOCRIT 40.7 % (36.0-47.0); HEMOGLOBIN 13.9 g/dL (12.0-15.5); LYMPHOCYTES % (AUTO) 45.6 % (13-45); MEAN CORPUSCULAR HEMOGLOBIN 32.4 pg (27.0-33.4); MEAN CORPUSCULAR HGB CONC 34.3 g/dL (32.0-36.0); MEAN CORPUSCULAR VOLUME 95 fl (80-97); PLATELET COUNT 353 10^3/uL (150-450); SEGMENTED NEUTROPHILS % (AUTO) 43.9 % (42-78); TOTAL CELLS COUNTED % (AUTO) 100 %
[2017-06-24 07:58] LABS: INTERNATIONAL RATION (INR) 0.92; PROTHROMBIN TIME 12.8 SEC (11.4-15.4)
[2017-06-24 08:14] LABS: CREATINE KINASE MB 0.69 ng/mL (<4.55); NT PRO BNP 40 pg/mL (5-900)
[2017-06-24 08:15] LABS: APPEARANCE,URINE SLIGHTLY-CLOUDY; BILIRUBIN,URINE NEGATIVE (NEGATIVE); COLOR,URINE YELLOW; GLUCOSE, URINE NEGATIVE (NEGATIVE); KETONES,URINE NEGATIVE (NEGATIVE); LEUKOCYTE ESTERASE,URINE MODERATE (NEGATIVE); NITRITE,URINE NEGATIVE (NEGATIVE); PROTEIN,URINE NEGATIVE (NEGATIVE); URINE SPECIFIC GRAVITY 1.026; UROBILINOGEN,URINE NEGATIVE mg/dL (<2.0)
[2017-06-24 08:16] LABS: TROPONIN I < 0.012 ng/mL
[2017-06-24 08:20] LABS: ALANINE AMINOTRANSFERASE 24 U/L (9-52); ALBUMIN 3.9 g/dL (3.5-5.0); ALKALINE PHOSPHATASE 64 U/L (38-126); ANION GAP 10 (5-19); ASPARTATE AMINO TRANSFERASE 27 U/L (14-36); BILIRUBIN,DIRECT 0.1 mg/dL (0.0-0.4); BILIRUBIN,TOTAL 0.5 mg/dL (0.2-1.3); BLOOD UREA NITROGEN 10 mg/dL (7-20); CALCIUM 8.8 mg/dL (8.4-10.2); CARBON DIOXIDE 30 mmol/L (22-30); CHLORIDE 108 mmol/L (98-107); CREATINE KINASE 63 U/L (30-135); GLUCOSE 99 mg/dL (75-110); POTASSIUM 3.2 mmol/L (3.6-5.0); SODIUM 148.2 mmol/L (137-145); TOTAL PROTEIN 7.2 g/dL (6.3-8.2)
--- NOTE | 2017-06-24 08:26 | RADIOLOGY REPORT (SQ) ---
EXAM DESCRIPTION: CHEST SINGLE VIEW COMPLETED DATE/TIME: 06/24/2017 7:58 am REASON FOR STUDY: cp COMPARISON: 07/10/2016 EXAM PARAMETERS: NUMBER OF VIEWS: One view. TECHNIQUE: Single frontal radiographic view of the chest acquired. RADIATION DOSE: NA LIMITATIONS: None. FINDINGS: LUNGS AND PLEURA: No opacities, masses or pneumothorax. No pleural effusion. MEDIASTINUM AND HILAR STRUCTURES: No masses. Contour normal. HEART AND VASCULAR STRUCTURES: Heart normal in size. Normal vasculature. BONES: No acute findings. HARDWARE: None in the chest. OTHER: No other significant finding. IMPRESSION: NO ACUTE RADIOGRAPHIC FINDING IN THE CHEST. TECHNICAL DOCUMENTATION: JOB ID: [id number] [employer]- All Rights Reserved Reading location - IP/workstation name: [email or web address]
[2017-06-24] MEDS ORDERED: POTASSIUM CHLORIDE 10 MEQ TABLET.SA PO ONE (10:28)
[2017-06-24 13:04] VITALS: BP 126/77
--- NOTE | 2017-06-24 13:14 | EKG REPORT ---
SEVERITY:- BORDERLINE ECG - SINUS RHYTHM BORDERLINE T ABNORMALITIES, ANTERIOR LEADS : Confirmed by: Lilly Desai 24-Jun-2017 13:13:09
== END 2017-06-24 12:45 | disposition short-term general hospital (02) ==
LOC: ER 07:05
DX: R07.9 Chest pain, unspecified (principal); R06.00 Dyspnea, unspecified; M79.7 Fibromyalgia; E78.00 Pure hypercholesterolemia, unspecified; I10 Essential (primary) hypertension; I25.2 Old myocardial infarction; Z91.040 Latex allergy status; Z88.3 Allergy status to other anti-infective agents; Z98.84 Bariatric surgery status
CPT/HCPCS: 93005; 99285; 36415; 82553; 82550; 85025; 85610; 80053; 81001; 84484; 83880; 71045; 93010; L3650

== ENCOUNTER 2017-10-18 02:22 | Emergency (ER) | payer BC ==
[2017-10-18] MEDS ORDERED: ASPIRIN 81 MG TABLET, CHEWABLE PO ONE (04:04)
[2017-10-18] MEDS ORDERED: ACETAMINOPHEN 325 MG TABLET PO ONE (04:05)
[2017-10-18] MEDS ORDERED: ONDANSETRON HCL INJ/PF 4 MG/2 ML SDV IV ONE (04:05)
[2017-10-18 04:09] LABS: ABSOLUTE BASOPHILS # (AUTO) 0.1 10^3/uL (0.0-0.2); ABSOLUTE EOSINOPHILS # (AUTO) 0.2 10^3/uL (0.0-0.6); ABSOLUTE LYMPHOCYTES (AUTO) 2.8 10^3/uL (0.5-4.7); ABSOLUTE MONOCYTES (AUTO) 0.5 10^3/uL (0.1-1.4); ABSOLUTE NEUT (AUTO) 2.5 10^3/uL (1.7-8.2); EOSINOPHILS % (AUTO) 2.7 % (0-6); HEMATOCRIT 42.2 % (36.0-47.0); HEMOGLOBIN 14.7 g/dL (12.0-15.5); LYMPHOCYTES % (AUTO) 47.3 % (13-45); MEAN CORPUSCULAR HEMOGLOBIN 33.9 pg (27.0-33.4); MEAN CORPUSCULAR HGB CONC 34.9 g/dL (32.0-36.0); MEAN CORPUSCULAR VOLUME 97 fl (80-97); MONOCYTES % (AUTO) 7.6 % (3-13); PLATELET COUNT 329 10^3/uL (150-450); RED BLOOD COUNT 4.34 10^6/uL (3.72-5.28); RED CELL DISTRIBUTION WIDTH 12.1 % (11.5-14.0); SEGMENTED NEUTROPHILS % (AUTO) 41.4 % (42-78); TOTAL CELLS COUNTED % (AUTO) 100 %
[2017-10-18 04:17] LABS: INTERNATIONAL RATION (INR) 0.94
[2017-10-18 04:39] LABS: ALANINE AMINOTRANSFERASE 22 U/L (9-52); ALBUMIN 4.1 g/dL (3.5-5.0); ALKALINE PHOSPHATASE 66 U/L (38-126); ANION GAP 9 (5-19); ASPARTATE AMINO TRANSFERASE 34 U/L (14-36); BILIRUBIN,DIRECT 0.2 mg/dL (0.0-0.4); BILIRUBIN,TOTAL 0.7 mg/dL (0.2-1.3); BLOOD UREA NITROGEN 15 mg/dL (7-20); CALCIUM 9.5 mg/dL (8.4-10.2); CARBON DIOXIDE 30 mmol/L (22-30); CHLORIDE 108 mmol/L (98-107); CREATINE KINASE 117 U/L (30-135); GLUCOSE 100 mg/dL (75-110); POTASSIUM 4.3 mmol/L (3.6-5.0); SODIUM 147.1 mmol/L (137-145); TOTAL PROTEIN 7.6 g/dL (6.3-8.2)
[2017-10-18 04:49] LABS: CREATINE KINASE MB 1.37 ng/mL (<4.55)
[2017-10-18 04:55] LABS: TROPONIN I < 0.012 ng/mL
--- NOTE | 2017-10-18 04:57 | RADIOLOGY REPORT (SQ) ---
EXAM DESCRIPTION: XR CHEST 1 VIEW COMPLETED DATE/TME: 10/18/2017 04:05 CLINICAL HISTORY: CP COMPARISON: 06/24/2017 FINDINGS: Single frontal view of the chest. Leads overlie the chest. The cardiomediastinal silhouette has normal size and contour. No consolidation, pneumothorax, or pleural effusion. Degenerative change of the spine. No acute osseous abnormalities. Upper abdominal soft tissues are unremarkable. IMPRESSION: 1. No acute pulmonary process identified.
[2017-10-18] MEDS ORDERED: SUCRALFATE 1 GM TABLET PO ONE (05:27)
--- NOTE | 2017-10-18 05:28 | ER Document Report ---
ED Cardiac - General Mode of Arrival: Ambulatory Information source: Patient TRAVEL OUTSIDE OF THE [place] IN LAST 30 DAYS: No <EDER MELLO - Last Filed: 10/18/17 05:23> <EDDIE PORTILLO - Last Filed: 10/18/17 06:31> - General Chief Complaint: Chest Pain Stated Complaint: CHEST PAIN Time Seen by Provider: 10/18/17 03:57 Notes: Patient is a 52-year-old female that presents to the emergency department today with complaints of chest pain. Patient states that her chest pain is exacerbated with movement. Patient states that in April of 2017 they attempted to stent her but her arteries were "too small". Patient states it does not hurt to breathe, and she has not had a cough or fever. (EDER MELLO) - Related Data Allergies/Adverse Reactions: bacitracin [From Neosporin ([id number])] Allergy (Intermediate, Verified 07:06) RED, PUFFY AT SITE latex Allergy (Intermediate, Verified 06/24/17 07:06) RED, SWELLS WITH PROLONGED CONTACT. neomycin [From Neosporin ([id number])] Allergy (Intermediate, Verified 07:06) RED, PUFFY AT SITE polymyxin B [From Neosporin ([id number])] Allergy (Intermediate, Verified 07:06) RED, PUFFY AT SITE sulfamethoxazole [From Septra] Allergy (Intermediate, Verified 06/24/17 07:06) HIVES, INTCHING trimethoprim [From Septra] Allergy (Intermediate, Verified 06/24/17 07:06) HIVES, ITCHING adhesive tape Allergy (Mild, Verified 06/24/17 07:06) RED AND PEELS SKIN WITH PROLONGED CONTACT Past Medical History - General Information source: Patient - Social History Smoking Status: Never Smoker Cigarette use (# per day): No Frequency of alcohol use: None Drug Abuse: None Lives with: Family Family History: CVA, Malignancy - Stomach cancer and brain cancer, Other - Congestive heart failure Patient has suicidal ideation: No Patient has homicidal ideation: No - Past Medical History Cardiac Medical History: Reports: Hx Heart Attack - 04/2014 STENT PLACEMENT UNSUCCESSFUL, Hx Hypercholesterolemia, Hx Hypertension - MEDICATED Pulmonary Medical History: Reports: Hx Asthma - NO HOSPITALIZATIONS Neurological Medical History: Denies: Hx Cerebrovascular Accident, Hx Seizures Renal/ Medical History: Denies: Hx Peritoneal Dialysis GI Medical History: Denies: Hx Hepatitis, Hx Hiatal Hernia, Hx Ulcer Musculoskeletal Medical History: Reports Hx Arthritis, Reports Hx Fibromyalgia Psychiatric Medical History: Reports: Hx Depression Infectious Medical History: Denies: Hx Hepatitis Past Surgical History: Reports: Hx Breast Surgery - breast reduction, Hx Cardiac Catheterization - w/ failed stent, Hx Gastric Bypass Surgery, Hx Orthopedic Surgery - left shouldar, Other - Breast reduction. Denies: Hx Hysterectomy, Hx Mastectomy, Hx Open Heart Surgery, Hx Pacemaker - Immunizations Hx Diphtheria, Pertussis, Tetanus Vaccination: Yes Hx Pneumococcal Vaccination: 02/25/13 <EDER MELLO - Last Filed: 10/18/17 05:23> Review of Systems - Review of Systems Constitutional: denies: Fever EENT: No symptoms reported Cardiovascular: See HPI, Chest pain, Other - hurts to move Respiratory: denies: Cough, Hurts to breathe Gastrointestinal: No symptoms reported Genitourinary: No symptoms reported Female Genitourinary: No symptoms reported Musculoskeletal: No symptoms reported Skin: No symptoms reported Hematologic/Lymphatic: No symptoms reported Neurological/Psychological: No symptoms reported -: Yes All other systems reviewed and negative <EDER MELLO - Last Filed: 10/18/17 05:23> Physical Exam - Vital signs Interpretation: Normal - General General appearance: Appears well, Alert - HEENT Head: Normocephalic, Atraumatic Eyes: Normal Pupils: PERRL - Respiratory Respiratory status: No respiratory distress Chest status: Nontender Breath sounds: Normal Chest palpation: Normal - Cardiovascular Rhythm: Regular Heart sounds: Normal auscultation Murmur: No - Abdominal Inspection: Normal Distension: No distension Bowel sounds: Normal Tenderness: Tender - Mild epigastric Organomegaly: No organomegaly - Back Back: Normal, Nontender - Extremities General upper extremity: Normal inspection, Nontender, Normal color, Normal ROM , Normal temperature General lower extremity: Normal inspection, Nontender, Normal color, Normal ROM , Normal temperature, Normal weight bearing. No: Sandra's sign - Neurological Neuro grossly intact: Yes Cognition: Normal Orientation: AAOx4 Adrian Coma Scale Eye Opening: Spontaneous Adrian Coma Scale Verbal: Oriented Adrian Coma Scale Motor: Obeys Commands Adrian Coma Scale Total: 15 Speech: Normal Motor strength normal: LUE, RUE, LLE, RLE Sensory: Normal - Psychological Associated symptoms: Normal affect, Normal mood - Skin Skin Temperature: Warm Skin Moisture: Dry Skin Color: Normal <EDDIE PORTILLO - Last Filed: 10/18/17 06:31> - Vital signs Vitals: Pulse Resp BP Pulse Ox 76 16 130/76 H 96 10/18/17 02:23 10/18/17 02:23 10/18/17 02:23 10/18/17 02:23 Course - Laboratory Result Diagrams: 10/18/17 03:57 10/18/17 03:57 <EDER MELLO - Last Filed: 10/18/17 05:23> - Laboratory Result Diagrams: 10/18/17 03:57 10/18/17 03:57 <EDDIE PORTILLO - Last Filed: 10/18/17 06:31> - Re-evaluation Re-evalutation: 10/18/17 05:10 Called [facility], page was put out for Dr. Oconnell the patient's pc support specialist 10/18/17 05:27 Dr. Parr called back, states in May the patient had a clean cath (EDER MELLO) 10/18/17 06:30 Troponin is negative. No acute findings on chest x-ray or EKG. D-dimer is negative. Patient feels somewhat better after Carafate. She will be discharged home and is to follow-up with her doctor regarding her symptoms. Stable for discharge. Understands agrees with plan. (EDDIE PORTILLO) - Vital Signs Vital signs: Temp Pulse Resp BP Pulse Ox 76 16 130/76 H 97 10/18/17 02:23 10/18/17 02:23 10/18/17 02:23 10/18/17 04:05 - Laboratory Laboratory results interpreted by me: 10/18/17 10/18/17 03:57 03:57 MCH 33.9 H Seg Neutrophils % 41.4 L Lymphocytes % 47.3 H Sodium 147.1 H Chloride 108 H Discharge <EDER MELLO - Last Filed: 10/18/17 05:23> <EDDIE PORTILLO - Last Filed: 10/18/17 06:31> - Discharge Clinical Impression: Chest pain Qualifiers: Chest pain type: unspecified Qualified Code(s): R07.9 - Chest pain, unspecified Condition: Stable Disposition: HOME, SELF-CARE Instructions: Chest Pain of Unclear Cause ([facility]) Referrals: GANGA CORCORAN MD [Primary Care Provider] - Follow up tomorrow Scribe Attestation: 10/18/17 06:31 I personally performed the services described in the documentation, reviewed and edited the documentation which was dictated to the scribe in my presence, and it accurately records my words and actions. (EDDIE PORTILLO) Scribe Documentation - Scribe Written by Nieves:: Nieves Rangel, 10/18/2017 0527 acting as scribe for :: Leah <EDER MELLO - Last Filed: 10/18/17 05:23>
[2017-10-18 06:47] VITALS: BP 112/81
--- NOTE | 2017-10-18 09:12 | EKG REPORT ---
SEVERITY:- BORDERLINE ECG - SINUS RHYTHM BORDERLINE T ABNORMALITIES, ANTERIOR LEADS : Confirmed by: Lilly Desai 18-Oct-2017 09:11:41
== END 2017-10-18 06:47 | disposition home or self-care (01) ==
LOC: ER 02:22
DX: R07.9 Chest pain, unspecified (principal); R10.816 Epigastric abdominal tenderness; I10 Essential (primary) hypertension; I25.2 Old myocardial infarction; J45.909 Unspecified asthma, uncomplicated; Z88.3 Allergy status to other anti-infective agents; Z88.1 Allergy status to other antibiotic agents; Z91.048 Other nonmedicinal substance allergy status
CPT/HCPCS: 93005; 99285; 96374; 36415; 82553; 82550; 85025; 85610; 80053; 84484; 85379; 71045; 93010; J2405

== ENCOUNTER 2017-11-25 11:08 | Emergency (ER) | payer BC ==
[2017-11-25] MEDS ORDERED: ASPIRIN 81 MG TABLET, CHEWABLE PO ONE (11:28)
--- NOTE | 2017-11-25 11:29 | ER Document Report ---
ED Medical Screen (RME) - General Chief Complaint: Chest Pain Stated Complaint: CHEST PAIN Time Seen by Provider: 11/25/17 11:26 Mode of Arrival: Ambulatory Information source: Patient, [facility] Records Notes: 52-year-old female with hypertension, coronary artery disease, previous CT presents with complaint of left-sided chest pain that started this morning. Patient describes the pain as stabbing, intermittent. I have greeted and performed a rapid initial assessment of this patient. A comprehensive ED assessment and evaluation of the patient, analysis of test results and completion of medical decision making process we will be contacted by additional ED providers. PHYSICAL EXAMINATION: Vital signs stable GENERAL: Well-appearing, well-nourished and in no acute distress. LUNGS: No respiratory distress Musculoskeletal: Normal range of motion NEUROLOGICAL: Normal speech, normal gait. PSYCH: Normal mood, normal affect. SKIN: Warm, Dry, normal turgor, no rashes or lesions noted. TRAVEL OUTSIDE OF THE [place] IN LAST 30 DAYS: No - HPI Onset: Just prior to arrival Onset/Duration: Gradual, Intermittent, Persistent Quality of pain: Stabbing Severity: Mild Associated Symptoms: None Exacerbated by: Denies Relieved by: Denies Similar symptoms previously: Yes Recently seen / treated by doctor: Yes - Related Data Smoking: Non-smoker Frequency of alcohol use: None Drug Abuse: None Allergies/Adverse Reactions: bacitracin [From Neosporin ([id number])] Allergy (Intermediate, Verified 03/14 11:10) RED, PUFFY AT SITE latex Allergy (Intermediate, Verified 11/25/17 11:10) RED, SWELLS WITH PROLONGED CONTACT. neomycin [From Neosporin ([id number])] Allergy (Intermediate, Verified 11:10) RED, PUFFY AT SITE polymyxin B [From Neosporin ([id number]-jwr-[id number])] Allergy (Intermediate, Verified 03/14 11:10) RED, PUFFY AT SITE sulfamethoxazole [From Septra] Allergy (Intermediate, Verified 11/25/17 11:10) HIVES, INTCHING trimethoprim [From Septra] Allergy (Intermediate, Verified 11/25/17 11:10) HIVES, ITCHING adhesive tape Allergy (Mild, Verified 11/25/17 11:10) RED AND PEELS SKIN WITH PROLONGED CONTACT Past Medical History - Past Medical History Cardiac Medical History: Reports: Hx Heart Attack - 04/2014 STENT PLACEMENT UNSUCCESSFUL, Hx Hypercholesterolemia, Hx Hypertension - MEDICATED Pulmonary Medical History: Reports: Hx Asthma - NO HOSPITALIZATIONS Neurological Medical History: Denies: Hx Cerebrovascular Accident, Hx Seizures Renal/ Medical History: Denies: Hx Peritoneal Dialysis GI Medical History: Denies: Hx Hepatitis, Hx Hiatal Hernia, Hx Ulcer Musculoskeltal Medical History: Reports Hx Arthritis, Reports Hx Fibromyalgia Psychiatric Medical History: Reports: Hx Depression Infectious Medical History: Denies: Hx Hepatitis Past Surgical History: Reports: Hx Breast Surgery - breast reduction, Hx Cardiac Catheterization - w/ failed stent, Hx Gastric Bypass Surgery, Hx Orthopedic Surgery - left shouldar, Other - Breast reduction. Denies: Hx Hysterectomy, Hx Mastectomy, Hx Open Heart Surgery, Hx Pacemaker - Immunizations Hx Diphtheria, Pertussis, Tetanus Vaccination: Yes Physical Exam - Vital signs Vitals: Temp Pulse Resp BP Pulse Ox 98.1 F 56 L 16 137/80 H 97 11/25/17 11:18 11/25/17 11:18 11/25/17 11:18 11/25/17 11:18 11/25/17 11:18 Course - Vital Signs Vital signs: Temp Pulse Resp BP Pulse Ox 98.1 F 56 L 16 137/80 H 97 11/25/17 11:18 11/25/17 11:18 11/25/17 11:18 11/25/17 11:18 11/25/17 11:18
[2017-11-25] MEDS ORDERED: ONDANSETRON HCL INJ/PF 4 MG/2 ML SDV IV ONE (11:39)
[2017-11-25] MEDS ORDERED: LIDOCAINE 2% VISCOUS SOLN 20 ML UDCUP PO ONE (11:39)
[2017-11-25] MEDS ORDERED: METOCLOPRAMIDE HCL ORAL SOLN 10 MG/10 ML UDCUP PO ONE (11:39)
[2017-11-25] MEDS ORDERED: MAG HYDROX/AL HYDROX/SIMETH SUSP 30 ML UDCUP PO ONE (11:39)
[2017-11-25 11:53] LABS: ABSOLUTE BASOPHILS # (AUTO) 0.1 10^3/uL (0.0-0.2); ABSOLUTE EOSINOPHILS # (AUTO) 0.2 10^3/uL (0.0-0.6); ABSOLUTE LYMPHOCYTES (AUTO) 2.7 10^3/uL (0.5-4.7); ABSOLUTE MONOCYTES (AUTO) 0.3 10^3/uL (0.1-1.4); ABSOLUTE NEUT (AUTO) 3.3 10^3/uL (1.7-8.2); BASOPHILS % (AUTO) 0.8 % (0-2); EOSINOPHILS % (AUTO) 3.1 % (0-6); HEMATOCRIT 40.4 % (36.0-47.0); HEMOGLOBIN 14.3 g/dL (12.0-15.5); LYMPHOCYTES % (AUTO) 41.4 % (13-45); MEAN CORPUSCULAR HEMOGLOBIN 33.8 pg (27.0-33.4); MEAN CORPUSCULAR HGB CONC 35.5 g/dL (32.0-36.0); MEAN CORPUSCULAR VOLUME 95 fl (80-97); MONOCYTES % (AUTO) 5.2 % (3-13); PLATELET COUNT 349 10^3/uL (150-450); RED BLOOD COUNT 4.24 10^6/uL (3.72-5.28); RED CELL DISTRIBUTION WIDTH 12.1 % (11.5-14.0); SEGMENTED NEUTROPHILS % (AUTO) 49.5 % (42-78); TOTAL CELLS COUNTED % (AUTO) 100 %; WHITE BLOOD COUNT 6.6 10^3/uL (4.0-10.5)
[2017-11-25 12:10] LABS: ALANINE AMINOTRANSFERASE 19 U/L (9-52); ALBUMIN 3.9 g/dL (3.5-5.0); ALKALINE PHOSPHATASE 48 U/L (38-126); ANION GAP 8 (5-19); ASPARTATE AMINO TRANSFERASE 36 U/L (14-36); BILIRUBIN,DIRECT 0.2 mg/dL (0.0-0.4); BILIRUBIN,TOTAL 0.8 mg/dL (0.2-1.3); BLOOD UREA NITROGEN 10 mg/dL (7-20); CALCIUM 9.4 mg/dL (8.4-10.2); CARBON DIOXIDE 29 mmol/L (22-30); CHLORIDE 108 mmol/L (98-107); CREATINE KINASE 92 U/L (30-135); GLUCOSE 84 mg/dL (75-110); LIPASE 59.8 U/L (23-300); POTASSIUM 3.7 mmol/L (3.6-5.0); SODIUM 144.6 mmol/L (137-145); TOTAL PROTEIN 6.9 g/dL (6.3-8.2)
--- NOTE | 2017-11-25 12:13 | ER Document Report ---
ED General - General Chief Complaint: Chest Pain Stated Complaint: CHEST PAIN Time Seen by Provider: 11/25/17 11:26 Mode of Arrival: Ambulatory TRAVEL OUTSIDE OF THE [place] IN LAST 30 DAYS: No - HPI Notes: Patient is a 52-year-old female that presents to the emergency department for chief complaint of chest pain. At 530 this morning she started having a sharp substernal and left-sided chest pain. The pain lasts for a few minutes at a time and then resolves. She denies any aggravating or relieving factors of the pain. She has radiation of the pain up into her left face, left neck, and left shoulder and left back. She reports associated nausea and shortness of breath. Patient was sent over from urgent care facility by EMS who gave her 324 mg aspirin. She states she did take her Imdur at home this morning. She has a history of CAD and her most recent heart catheterization was in May. She states she has not received a stent because her vessels were too small. Currently she is not having any chest pain. Past Medical History: Hypertension, CAD Past Surgical History: Heart catheterization, foot surgery Social History: Denies drugs alcohol and tobacco Family History: Reviewed and noncontributory for presenting illness Allergies: Reviewed, see documented allergy list. REVIEW OF SYSTEMS: CONSTITUTIONAL : No fever No chills No diaphoresis No recent illness EENT: No vision changes No congestion No sore throat CARDIOVASCULAR: chest pain No palpitations RESPIRATORY: shortness of breath No cough No difficulty breathing GASTROINTESTINAL: No abdominal pain nausea No vomiting No diarrhea GENITOURINARY: No dysuria No hematuria No difficulty urinating MUSCULOSKELETAL: No back pain No leg pain No arm pain SKIN: No rashes No lesions LYMPHATIC: No swollen, enlarged glands. NEUROLOGICAL: No lightheadedness No headache No weakness No paresthesias PSYCHIATRIC: No anxiety No depression PHYSICAL EXAMINATION: Vital signs reviewed, nursing noted reviewed. GENERAL: Well-appearing, well-nourished and in no acute distress. HEAD: Atraumatic, normocephalic. EYES: Eyes appear normal, extraocular movements intact, sclera anicteric, conjunctiva are normal. ENT: nares patent, oropharynx clear without exudates. Moist mucous membranes. NECK: Normal range of motion, supple without lymphadenopathy LUNGS: Breath sounds clear to auscultation bilaterally and equal. No wheezes rales or rhonchi. HEART: Regular rate and rhythm without murmurs ABDOMEN: Soft, nontender, normoactive bowel sounds. No rebound, guarding, or rigidity. No masses appreciated. EXTREMITIES: Nontender, good range of motion, no pitting or edema. NEUROLOGICAL: No focal neurological deficits. Moves all extremities spontaneously Motor and sensory grossly intact on exam. PSYCH: Normal mood, normal affect. SKIN: Warm, Dry, normal turgor, no rashes or lesions noted on exposed skin - Related Data Allergies/Adverse Reactions: bacitracin [From Neosporin (khi-bec-taogz)] Allergy (Intermediate, Verified 03/14 11:10) RED, PUFFY AT SITE latex Allergy (Intermediate, Verified 11/25/17 11:10) RED, SWELLS WITH PROLONGED CONTACT. neomycin [From Neosporin ([id number]-tve-lzymp)] Allergy (Intermediate, Verified 11:10) RED, PUFFY AT SITE polymyxin B [From Neosporin ([id number]-hxq-nukun)] Allergy (Intermediate, Verified 03/14 11:10) RED, PUFFY AT SITE sulfamethoxazole [From Septra] Allergy (Intermediate, Verified 11/25/17 11:10) HIVES, INTCHING trimethoprim [From Septra] Allergy (Intermediate, Verified 11/25/17 11:10) HIVES, ITCHING adhesive tape Allergy (Mild, Verified 11/25/17 11:10) RED AND PEELS SKIN WITH PROLONGED CONTACT Past Medical History - General Information source: Patient, [facility] Records - Social History Smoking Status: Never Smoker Chew tobacco use (# tins/day): No Frequency of alcohol use: None Drug Abuse: None Family History: CVA, Malignancy - Stomach cancer and brain cancer, Other - Congestive heart failure Patient has suicidal ideation: No Patient has homicidal ideation: No - Past Medical History Cardiac Medical History: Reports: Hx Heart Attack - 04/2014 STENT PLACEMENT UNSUCCESSFUL, Hx Hypercholesterolemia, Hx Hypertension - MEDICATED Pulmonary Medical History: Reports: Hx Asthma - NO HOSPITALIZATIONS Neurological Medical History: Denies: Hx Cerebrovascular Accident, Hx Seizures Renal/ Medical History: Denies: Hx Peritoneal Dialysis GI Medical History: Denies: Hx Hepatitis, Hx Hiatal Hernia, Hx Ulcer Musculoskeletal Medical History: Reports Hx Arthritis, Reports Hx Fibromyalgia Psychiatric Medical History: Reports: Hx Depression Infectious Medical History: Denies: Hx Hepatitis Past Surgical History: Reports: Hx Breast Surgery - breast reduction, Hx Cardiac Catheterization - w/ failed stent, Hx Gastric Bypass Surgery, Hx Orthopedic Surgery - left shouldar, Other - Breast reduction. Denies: Hx Hysterectomy, Hx Mastectomy, Hx Open Heart Surgery, Hx Pacemaker - Immunizations Hx Diphtheria, Pertussis, Tetanus Vaccination: Yes Hx Pneumococcal Vaccination: 02/25/13 Review of Systems - Review of Systems Notes: Dictated Physical Exam - Vital signs Vitals: Temp Pulse Resp BP Pulse Ox 98.1 F 56 L 16 137/80 H 97 11/25/17 11:18 11/25/17 11:18 11/25/17 11:18 11/25/17 11:18 11/25/17 11:18 - Notes Notes: Dictated Course - Re-evaluation Re-evalutation: 11/25/17 12:11 Vitals reviewed and stable. Patient received aspirin prior to arrival. She is currently chest pain-free. EKG shows no ST elevation. 11/25/17 13:31 Patient still chest pain-free. Lab work shows normal troponin. She has no electrolyte derangements. There are no signs of infection. Chest x-ray shows no acute process. Laboratory 11/25/17 11/25/17 11/25/17 11:31 11:31 11:31 WBC Cancelled RBC Cancelled Hgb Cancelled Hct Cancelled MCV Cancelled MCH Cancelled MCHC Cancelled RDW Cancelled Plt Count Cancelled Seg Neutrophils % Cancelled Lymphocytes % Cancelled Monocytes % Cancelled Eosinophils % Cancelled Basophils % Cancelled Absolute Neutrophils Cancelled Absolute Lymphocytes Cancelled Absolute Monocytes Cancelled Absolute Eosinophils Cancelled Absolute Basophils Cancelled Platelet Estimate Cancelled Sodium 144.6 Potassium 3.7 Chloride 108 H Carbon Dioxide 29 Anion Gap 8 BUN 10 Creatinine 0.74 Est GFR ( Amer) > 60 Est GFR (Non-Af Amer) > 60 Glucose 84 Calcium 9.4 Total Bilirubin 0.8 Direct Bilirubin 0.2 Neonat Total Bilirubin Not Reportable Neonat Direct Bilirubin Not Reportable Neonat Indirect Bili Not Reportable AST 36 ALT 19 Alkaline Phosphatase 48 Creatine Kinase 92 CK-MB (CK-2) 0.80 Troponin I < 0.012 Total Protein 6.9 Albumin 3.9 Lipase 59.8 Urine Color Urine Appearance Urine pH Ur Specific Milton Urine Protein Urine Glucose (UA) Urine Ketones Urine Blood Urine Nitrite Urine Bilirubin Urine Urobilinogen Ur Leukocyte Esterase Urine WBC (Auto) Urine RBC (Auto) Urine Bacteria (Auto) Squamous Epi Cells Auto Urine Mucus (Auto) Urine Ascorbic Acid Slides for Path Review Cancelled 11/25/17 11/25/17 11:31 11:50 WBC 6.6 RBC 4.24 Hgb 14.3 Hct 40.4 MCV 95 MCH 33.8 H MCHC 35.5 RDW 12.1 Plt Count 349 Seg Neutrophils % 49.5 Lymphocytes % 41.4 Monocytes % 5.2 Eosinophils % 3.1 Basophils % 0.8 Absolute Neutrophils 3.3 Absolute Lymphocytes 2.7 Absolute Monocytes 0.3 Absolute Eosinophils 0.2 Absolute Basophils 0.1 Platelet Estimate Sodium Potassium Chloride Carbon Dioxide Anion Gap BUN Creatinine Est GFR ( Amer) Est GFR (Non-Af Amer) Glucose Calcium Total Bilirubin Direct Bilirubin Neonat Total Bilirubin Neonat Direct Bilirubin Neonat Indirect Bili AST ALT Alkaline Phosphatase Creatine Kinase CK-MB (CK-2) Troponin I Total Protein Albumin Lipase Urine Color DARK YELLOW Urine Appearance SLIGHTLY HAZY Urine pH 5.0 Ur Specific Milton 1.027 Urine Protein NEGATIVE Urine Glucose (UA) NEGATIVE Urine Ketones NEGATIVE Urine Blood NEGATIVE Urine Nitrite NEGATIVE Urine Bilirubin NEGATIVE Urine Urobilinogen 2.0 H Ur Leukocyte Esterase LARGE H Urine WBC (Auto) 19 Urine RBC (Auto) 5 Urine Bacteria (Auto) TRACE Squamous Epi Cells Auto 3 Urine Mucus (Auto) OCC Urine Ascorbic Acid NEGATIVE Slides for Path Review Chest X-Ray 11/25/17 11:28 IMPRESSION: NO ACUTE RADIOGRAPHIC FINDING IN THE CHEST. 11/25/17 16:13 I discussed patient's care with Dr. Mckenzie who was able to pull her cardiac catheterization report from April 2017. He states there was no coronary artery disease on heart catheterization. Patient's repeat troponin is negative. She has remained hemodynamically stable. 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 Morales Oconnell in [facility]. Patient in agreement with this plan and stable at discharge. - Vital Signs Vital signs: Temp Pulse Resp BP Pulse Ox 98.1 F 56 L 16 137/80 H 97 11/25/17 11:18 11/25/17 11:18 11/25/17 11:18 11/25/17 11:18 11/25/17 11:18 - Laboratory Result Diagrams: 11/25/17 11:31 11/25/17 11:31 Laboratory results interpreted by me: 11/25/17 11/25/17 11/25/17 11:31 11:31 11:50 MCH 33.8 H Chloride 108 H Urine Urobilinogen 2.0 H Ur Leukocyte Esterase LARGE H - EKG Interpretation by Me Additional EKG results interpreted by me: 11/25/17 12:12 1115: Normal sinus rhythm, rate 61, normal axis, no ectopy, diffuse T wave flattening, no ST elevation, no significant change from 10/18/17 Discharge - Discharge Clinical Impression: Chest pain Qualifiers: Chest pain type: unspecified Qualified Code(s): R07.9 - Chest pain, unspecified Condition: Stable Disposition: HOME, SELF-CARE Instructions: Chest Pain of Unclear Cause ([facility]) Additional Instructions: Please return to the emergency department if you have any worsening, or concern of your symptoms. Please return to the emergency department if you develop chest pain, difficulty breathing, severe abdominal pain, or ongoing vomiting. Please follow-up with your primary care physician in 2-3 days and any other recommended physicians. If prescribed, take all medications as directed. If you have any questions or concerns do not hesitate to return the emergency department for evaluation. Follow with your programming internship Dr. Morales Oconnell at [facility] for reevaluation in 3-5 days
[2017-11-25 12:21] LABS: BILIRUBIN,URINE NEGATIVE (NEGATIVE); COLOR,URINE DARK YELLOW; GLUCOSE, URINE NEGATIVE (NEGATIVE); KETONES,URINE NEGATIVE (NEGATIVE); LEUKOCYTE ESTERASE,URINE LARGE (NEGATIVE); NITRITE,URINE NEGATIVE (NEGATIVE); PROTEIN,URINE NEGATIVE (NEGATIVE); URINE SPECIFIC GRAVITY 1.027
[2017-11-25 12:22] LABS: APPEARANCE,URINE SLIGHTLY HAZY
[2017-11-25 12:22] LABS: TROPONIN I < 0.012 ng/mL
--- NOTE | 2017-11-25 12:33 | RADIOLOGY REPORT (SQ) ---
EXAM DESCRIPTION: CHEST SINGLE VIEW COMPLETED DATE/TIME: 11/25/2017 11:39 am REASON FOR STUDY: chest pain COMPARISON: None. EXAM PARAMETERS: NUMBER OF VIEWS: One view. TECHNIQUE: Single frontal radiographic view of the chest acquired. RADIATION DOSE: NA LIMITATIONS: None. FINDINGS: LUNGS AND PLEURA: No opacities, masses or pneumothorax. No pleural effusion. MEDIASTINUM AND HILAR STRUCTURES: No masses. Contour normal. HEART AND VASCULAR STRUCTURES: Heart normal in size. Normal vasculature. BONES: No acute findings. HARDWARE: None in the chest. OTHER: No other significant finding. IMPRESSION: NO ACUTE RADIOGRAPHIC FINDING IN THE CHEST. TECHNICAL DOCUMENTATION: JOB ID: [id number] [employer]- All Rights Reserved Reading location - IP/workstation name: [email or web address]
--- NOTE | 2017-11-25 16:13 | EKG REPORT ---
SEVERITY:- BORDERLINE ECG - SINUS RHYTHM BORDERLINE T ABNORMALITIES, ANTERIOR LEADS : Confirmed by: Lilly Desai 25-Nov-2017 16:13:17
[2017-11-25 18:02] VITALS: BP 131/37
== END 2017-11-25 18:02 | disposition home or self-care (01) ==
LOC: ER 11:08
DX: R07.89 Other chest pain (principal); J45.909 Unspecified asthma, uncomplicated; R11.0 Nausea; R06.02 Shortness of breath; I10 Essential (primary) hypertension; Z88.3 Allergy status to other anti-infective agents; Z91.040 Latex allergy status; Z88.1 Allergy status to other antibiotic agents; Z91.048 Other nonmedicinal substance allergy status; I25.2 Old myocardial infarction; Z98.84 Bariatric surgery status
CPT/HCPCS: 93005; 99285; 96374; 36415; 82553; 82550; 83690; 85025; 80053; 81001; 84484; 71045; 93010; J3490; J2405

== ENCOUNTER 2018-05-14 18:18 | Emergency (ER) | payer BC ==
--- NOTE | 2018-05-14 18:35 | ER Document Report ---
ED Medical Screen (RME) - General Chief Complaint: Shortness Of Breath Stated Complaint: SHORTNESS OF BREATH Time Seen by Provider: 05/14/18 18:28 Notes: This 52-year-old female patient comes emergency room complaint of shortness of breath that started on Saturday. She reports a 15 pound weight gain in the past week or less. She was started on torsemide 5 mg dosing on 04/26/2018 for fluid retention. She went to an urgent care yesterday and had an EKG, chest x-ray, blood work, and was told by 1 of the providers that she may be had CHF, but in the doctor said the chest x-ray looked fine. She does report increasing dyspnea with walking. She has had to sleep propped up on pillows, but she has not tried laying down to see what that would do. She does seem to be dyspneic, but there is no edema to the lower extremities and ankles. She is obese. I have greeted and performed a rapid initial assessment of this patient. A comprehensive ED assessment and evaluation of the patient, analysis of test results and completion of the medical decision making process will be conducted by additional ED providers. TRAVEL OUTSIDE OF THE [place] IN LAST 30 DAYS: No - Related Data Allergies/Adverse Reactions: bacitracin [From Neosporin ([id number])] Allergy (Intermediate, Verified 11/25/17 11:10) RED, PUFFY AT SITE latex Allergy (Intermediate, Verified 11/25/17 11:10) RED, SWELLS WITH PROLONGED CONTACT. neomycin [From Neosporin ([id number]-rmc-cocup)] Allergy (Intermediate, Verified 11/25/17 11:10) RED, PUFFY AT SITE polymyxin B [From Neosporin ([id number]-fsw-fmywz)] Allergy (Intermediate, Verified 11/25/17 11:10) RED, PUFFY AT SITE sulfamethoxazole [From Septra] Allergy (Intermediate, Verified 11/25/17 11:10) HIVES, INTCHING trimethoprim [From Septra] Allergy (Intermediate, Verified 11/25/17 11:10) HIVES, ITCHING adhesive tape Allergy (Mild, Verified 11/25/17 11:10) RED AND PEELS SKIN WITH PROLONGED CONTACT Past Medical History - Past Medical History Cardiac Medical History: Reports: Hx Heart Attack - 04/2014 STENT PLACEMENT UNSUCCESSFUL, Hx Hypercholesterolemia, Hx Hypertension - MEDICATED Pulmonary Medical History: Reports: Hx Asthma - NO HOSPITALIZATIONS Neurological Medical History: Denies: Hx Cerebrovascular Accident, Hx Seizures Renal/ Medical History: Denies: Hx Peritoneal Dialysis GI Medical History: Denies: Hx Hepatitis, Hx Hiatal Hernia, Hx Ulcer Musculoskeltal Medical History: Reports Hx Arthritis, Reports Hx Fibromyalgia Psychiatric Medical History: Reports: Hx Depression Infectious Medical History: Denies: Hx Hepatitis Past Surgical History: Reports: Hx Breast Surgery - breast reduction, Hx Cardiac Catheterization - w/ failed stent, Hx Gastric Bypass Surgery, Hx Orthopedic Surgery - left shouldar, Other - Breast reduction. Denies: Hx Hysterectomy, Hx Mastectomy, Hx Open Heart Surgery, Hx Pacemaker - Immunizations Hx Diphtheria, Pertussis, Tetanus Vaccination: Yes Physical Exam - Vital signs Vitals: Temp Pulse Resp BP Pulse Ox 98.2 F 75 20 124/74 100 05/14/18 18:24 05/14/18 18:24 05/14/18 18:24 05/14/18 18:24 05/14/18 18:24 Course - Vital Signs Vital signs: Temp Pulse Resp BP Pulse Ox 98.2 F 75 20 124/74 100 05/14/18 18:24 05/14/18 18:24 05/14/18 18:24 05/14/18 18:24 05/14/18 18:24
--- NOTE | 2018-05-14 18:51 | RADIOLOGY REPORT (SQ) ---
EXAM DESCRIPTION: CHEST 2 VIEWS COMPLETED DATE/TIME: 05/14/2018 6:42 pm REASON FOR STUDY: Short of breath, fluid retention COMPARISON: 11/25/2017 EXAM PARAMETERS: NUMBER OF VIEWS: two views TECHNIQUE: Digital Frontal and Lateral radiographic views of the chest acquired. RADIATION DOSE: NA LIMITATIONS: none FINDINGS: LUNGS AND PLEURA: No opacities, masses or pneumothorax. No pleural effusion. MEDIASTINUM AND HILAR STRUCTURES: No masses or contour abnormalities. HEART AND VASCULAR STRUCTURES: Heart normal size. No evidence for failure. 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 OTHER: No other significant finding. IMPRESSION: No acute abnormality of the lungs. TECHNICAL DOCUMENTATION: JOB ID: [id number] [employer]- All Rights Reserved Reading location - IP/workstation name: [email or web address]
[2018-05-14] MEDS ORDERED: IPRATROPIUM/ALBUTEROL 0.5-2.5 MG/3 ML AMPUL NEB ONE (20:43)
[2018-05-14] MEDS ORDERED: KETOROLAC TROMETHAMINE INJ/PF 30 MG/1 ML SDV IV ONE (20:44)
[2018-05-14 20:53] LABS: ABSOLUTE BASOPHILS # (AUTO) 0.1 10^3/uL (0.0-0.2); ABSOLUTE EOSINOPHILS # (AUTO) 0.1 10^3/uL (0.0-0.6); ABSOLUTE LYMPHOCYTES (AUTO) 3.9 10^3/uL (0.5-4.7); ABSOLUTE MONOCYTES (AUTO) 0.5 10^3/uL (0.1-1.4); ABSOLUTE NEUT (AUTO) 3.8 10^3/uL (1.7-8.2); BASOPHILS % (AUTO) 0.9 % (0-2); EOSINOPHILS % (AUTO) 1.7 % (0-6); HEMATOCRIT 39.9 % (36.0-47.0); HEMOGLOBIN 14.2 g/dL (12.0-15.5); LYMPHOCYTES % (AUTO) 46.1 % (13-45); MEAN CORPUSCULAR HGB CONC 35.6 g/dL (32.0-36.0); MEAN CORPUSCULAR VOLUME 95 fl (80-97); MONOCYTES % (AUTO) 6.4 % (3-13); PLATELET COUNT 359 10^3/uL (150-450); RED BLOOD COUNT 4.18 10^6/uL (3.72-5.28); RED CELL DISTRIBUTION WIDTH 12.1 % (11.5-14.0); SEGMENTED NEUTROPHILS % (AUTO) 44.9 % (42-78); TOTAL CELLS COUNTED % (AUTO) 100 %; WHITE BLOOD COUNT 8.5 10^3/uL (4.0-10.5)
[2018-05-14 21:12] LABS: ALANINE AMINOTRANSFERASE 29 U/L (9-52); ALBUMIN 4.1 g/dL (3.5-5.0); ALKALINE PHOSPHATASE 69 U/L (38-126); ANION GAP 8 (5-19); ASPARTATE AMINO TRANSFERASE 28 U/L (14-36); BILIRUBIN,DIRECT 0.2 mg/dL (0.0-0.4); BILIRUBIN,TOTAL 0.6 mg/dL (0.2-1.3); BLOOD UREA NITROGEN 14 mg/dL (7-20); CALCIUM 9.3 mg/dL (8.4-10.2); CARBON DIOXIDE 29 mmol/L (22-30); CHLORIDE 106 mmol/L (98-107); CREATINE KINASE 76 U/L (30-135); GLUCOSE 91 mg/dL (75-110); POTASSIUM 4.2 mmol/L (3.6-5.0); SODIUM 142.9 mmol/L (137-145); TOTAL PROTEIN 7.4 g/dL (6.3-8.2)
[2018-05-14 21:22] LABS: CREATINE KINASE MB 0.62 ng/mL (<4.55); NT PRO BNP 17 pg/mL (5-900)
[2018-05-14 21:23] LABS: TROPONIN I < 0.012 ng/mL
[2018-05-14 21:37] LABS: APPEARANCE,URINE CLOUDY; BILIRUBIN,URINE NEGATIVE (NEGATIVE); COLOR,URINE YELLOW; GLUCOSE, URINE NEGATIVE (NEGATIVE); KETONES,URINE NEGATIVE (NEGATIVE); LEUKOCYTE ESTERASE,URINE LARGE (NEGATIVE); NITRITE,URINE NEGATIVE (NEGATIVE); PROTEIN,URINE NEGATIVE (NEGATIVE); URINE SPECIFIC GRAVITY 1.021
[2018-05-14] MEDS ORDERED: PREDNISONE 20 MG TABLET PO ONE (21:38)
[2018-05-14] MEDS ORDERED: NORMAL SALINE 500 ML IV ONE (22:22)
[2018-05-14] MEDS ORDERED: CEFTRIAXONE 1 GM/D5W RTU 1 GM/50 ML RTUPB IV ONE (22:34)
--- NOTE | 2018-05-14 22:41 | ER Document Report ---
Entered by JOSIANE TORREZ SCRIBE 05/14/182036 Acting as scribe for:EDDIE PORTILLO DO ED Respiratory Problem - General Chief Complaint: Shortness Of Breath Stated Complaint: SHORTNESS OF BREATH Time Seen by Provider: 05/14/18 18:28 Primary Care Provider: GANGA DOWLING MD [Primary Care Provider] - Follow up in 3-5 days Mode of Arrival: Ambulatory Information source: Patient Notes: Patient is a 52 year old female with a history of an [place] presents to the emergency department complaining of shortness of breath onset 4 days ago. She states she is short of breath on exertion and her symptoms are resolved when resting. She states she has taken DuoNeb treatments which helped temporarily resolved her symptoms. She also complains of a new onset cough. She denies any current shortness of breath or recent wheezing. Of significance, patient reports going to an urgent care yesterday where she had an EKG, chest x-ray, blood work, and was told by 1 of the providers that she may be had CHF, but in the doctor said the chest x-ray looked fine. She was recently placed on 5mg of torsemide on 04/26/2018 for fluid retention. TRAVEL OUTSIDE OF THE [place] IN LAST 30 DAYS: No - Related Data Allergies/Adverse Reactions: bacitracin [From Neosporin (ngq-fcl-wtway)] Allergy (Intermediate, Verified 11/25/17 11:10) RED, PUFFY AT SITE latex Allergy (Intermediate, Verified 11/25/17 11:10) RED, SWELLS WITH PROLONGED CONTACT. neomycin [From Neosporin (ozb-mca-gqlym)] Allergy (Intermediate, Verified 11/25/17 11:10) RED, PUFFY AT SITE polymyxin B [From Neosporin (zvb-gbp-ufxid)] Allergy (Intermediate, Verified 11/25/17 11:10) RED, PUFFY AT SITE sulfamethoxazole [From Septra] Allergy (Intermediate, Verified 11/25/17 11:10) HIVES, INTCHING trimethoprim [From Septra] Allergy (Intermediate, Verified 11/25/17 11:10) HIVES, ITCHING adhesive tape Allergy (Mild, Verified 11/25/17 11:10) RED AND PEELS SKIN WITH PROLONGED CONTACT Past Medical History - General Information source: Patient - Social History Smoking Status: Never Smoker Chew tobacco use (# tins/day): No Frequency of alcohol use: None Drug Abuse: None Family History: CVA, Malignancy - Stomach cancer and brain cancer, Other - Congestive heart failure Patient has suicidal ideation: No Patient has homicidal ideation: No - Past Medical History Cardiac Medical History: Reports: Hx Heart Attack - 04/2014 STENT PLACEMENT UNSUCCESSFUL, Hx Hypercholesterolemia, Hx Hypertension - MEDICATED Pulmonary Medical History: Reports: Hx Asthma - NO HOSPITALIZATIONS Musculoskeletal Medical History: Reports Hx Arthritis, Reports Hx Fibromyalgia Psychiatric Medical History: Reports: Hx Depression Past Surgical History: Reports: Hx Breast Surgery - breast reduction, Hx Cardiac Catheterization - w/ failed stent, Hx Gastric Bypass Surgery, Hx Orthopedic Surgery - left shouldar, Other - Breast reduction - Immunizations Hx Diphtheria, Pertussis, Tetanus Vaccination: Yes Hx Pneumococcal Vaccination: 02/25/13 Review of Systems - Review of Systems Constitutional: No symptoms reported EENT: No symptoms reported Cardiovascular: No symptoms reported Respiratory: See HPI Gastrointestinal: No symptoms reported Genitourinary: No symptoms reported Female Genitourinary: No symptoms reported Musculoskeletal: No symptoms reported Skin: No symptoms reported Hematologic/Lymphatic: No symptoms reported Neurological/Psychological: No symptoms reported -: Yes All other systems reviewed and negative Physical Exam - Vital signs Vitals: Temp Pulse Resp BP Pulse Ox 98.2 F 75 20 124/74 100 05/14/18 18:24 05/14/18 18:24 05/14/18 18:24 05/14/18 18:24 05/14/18 18:24 - Notes Notes: GENERAL: Alert, interacts well. No acute distress. HEAD: Normocephalic, atraumatic. EYES: Pupils equal, round, and reactive to light. Extraocular movements intact. ENT: Oral mucosa moist, tongue midline. NECK: Full range of motion. Supple. Trachea midline. LUNGS: Poor aeration. No respiratory distress. HEART: Regular rate and rhythm. No murmurs, gallops, or rubs. ABDOMEN: Soft, non-tender. Non-distended. Bowel sounds present in all 4 quadrants. No guarding, rigidity, or rebound. EXTREMITIES: Moves all 4 extremities spontaneously. NEUROLOGICAL: Alert and oriented x3. Normal speech. PSYCH: Normal affect, normal mood. SKIN: Warm, dry, normal turgor. No rashes or lesions noted. Course - Re-evaluation Re-evalutation: 05/14/18 22:39 Patient is a 52-year-old female who comes in with dyspnea on exertion. D-dimer is negative. BNP is 17. Troponin is negative. No acute changes on EKG. Patient is discussed this with her primary and has a follow-up appointment. No evidence for heart failure, PE, or pneumonia. Patient does have a possible UTI. Will treat that she has been feeling more tired lately. Cultures will be sent. Patient is agreeable to this plan will be discharged home after she finishes a dose of antibiotics in the emergency department. Understands and agrees with plan. Will return if any worsening or concerning symptoms. Stable for discharge - Vital Signs Vital signs: Temp Pulse Resp BP Pulse Ox 98.2 F 75 13 121/67 97 05/14/18 18:24 05/14/18 18:24 05/14/18 21:01 05/14/18 21:01 05/14/18 21:01 - Laboratory Result Diagrams: 05/14/18 20:37 05/14/18 20:37 Laboratory results interpreted by me: 05/14/18 05/14/18 20:37 21:23 MCH 34.0 H Lymphocytes % 46.1 H Urine Urobilinogen 2.0 H Ur Leukocyte Esterase LARGE H Urine Ascorbic Acid 40 H Discharge - Discharge Clinical Impression: Atypical chest pain Asthma exacerbation Qualifiers: Asthma severity: mild Asthma persistence: unspecified Qualified Code(s): J45.901 - Unspecified asthma with (acute) exacerbation UTI (urinary tract infection) Qualifiers: Urinary tract infection type: site unspecified Hematuria presence: with hematuria Qualified Code(s): N39.0 - Urinary tract infection, site not specified; R31.9 - Hematuria, unspecified Condition: Stable Disposition: HOME, SELF-CARE Instructions: Asthma ([facility]), Urinary Tract Infection ([facility]) Prescriptions: Albuterol Sulfate [Proair HFA Inhalation Aerosol 8.5 gm MDI] 2 puff IH Q4H PRN #1 mdi PRN Reason: Cephalexin Monohydrate [Keflex 500 mg Capsule] 500 mg PO TID #30 capsule Ipratropium/Albuterol Sulfate [Duoneb 3 ml Ampul] 3 ml NEB RTQ4HP PRN #30 vial .neb PRN Reason: Prednisone [Deltasone 20 mg Tablet] 40 mg PO DAILY #6 tablet Referrals: GANGA DOWLING MD [Primary Care Provider] - Follow up in 3-5 days Scribe Attestation: 05/14/18 22:40 I personally performed the services described in the documentation, reviewed and edited the documentation which was dictated to the scribe in my presence, and it accurately records my words and actions. I personally performed the services described in the documentation, reviewed and edited the documentation which was dictated to the scribe in my presence, and it accurately records my words and actions.
--- NOTE | 2018-05-14 23:32 | EKG REPORT ---
SEVERITY:- BORDERLINE ECG - SINUS RHYTHM BORDERLINE T ABNORMALITIES, ANTERIOR LEADS : Confirmed by: Lilly Desai 14-May-2018 23:31:30
[2018-05-15 00:11] VITALS: BP 131/77
== END 2018-05-15 00:11 | disposition home or self-care (01) ==
LOC: ER 18:18
DX: N39.0 Urinary tract infection, site not specified (principal); J45.901 Unspecified asthma with (acute) exacerbation; R07.89 Other chest pain; R06.02 Shortness of breath; I50.9 Heart failure, unspecified; I11.0 Hypertensive heart disease with heart failure; Z79.899 Other long term (current) drug therapy
CPT/HCPCS: 93005; 94640; 99285; 96361; 96374; 36415; 87040; 87086; 82553; 82550; 84443; 85025; 87077; 80053; 81001; 84484; 85379; 83880; 71046; 93010; J1885; J7512; J7040; J0696; J7620; 87186

== ENCOUNTER → 2018-07-25 | Outpatient (CLI) | payer BC ==
--- NOTE | 2018-07-25 13:48 | RADIOLOGY REPORT (SQ) ---
EXAM DESCRIPTION: CT CHEST WITHOUT COMPLETED DATE/TIME: 07/25/2018 1:20 pm REASON FOR STUDY: OTHER DISORDERS OF LUNG J98.4 OTHER DISORDERS OF LUNG R06.09 OTHER FORMS OF DYSP MICHELLE COMPARISON: None. TECHNIQUE: CT scan performed of the chest without intravenous contrast. Images reviewed with lung, soft tissue and bone windows. Reconstructed coronal and sagittal MPR images reviewed. All images st ored on PACS. All CT scanners at this facility use dose modulation, iterative reconstruction, and/or weight based d osing when appropriate to reduce radiation dose to as low as reasonably achievable (ALARA). [facility]: Dose Right [facility]: CareDose [facility]: Dose Right [facility]: Teradose 4D [facility]: Casengo RADIATION DOSE: CT Rad equipment meets quality standard of care and radiation dose reduction techniq ues were employed. CTDIvol: 18.2 mGy. DLP: 646 mGy-cm. mGy. LIMITATIONS: No technical limitations. FINDINGS: LUNGS AND PLEURA: No masses, infiltrates, or pneumothorax. No pleural effusions or pleura l calcifications. HILAR AND MEDIASTINAL STRUCTURES: No identified masses or abnormal nodes. No obvious aneurysm. HEART AND VASCULAR STRUCTURES: No aneurysm. No pericardial effusion. UPPER ABDOMEN: Prior gastric bypass. Limited exam. THYROID AND OTHER SOFT TISSUES: No masses. No adenopathy. BONES: No significant finding. HARDWARE: None in the chest. OTHER: No other significant findings. IMPRESSION: NO SIGNIFICANT FINDING ON NON-CONTRASTED CHEST CT. TECHNICAL DOCUMENTATION: JOB ID: [id number] Quality ID # [id number]: Final reports with documentation of one or more dose reduction techniques (e.g., Au tomated exposure control, adjustment of the mA and/or kV according to patient size, use of iterative reconstruction technique) 2010 [employer]- All Rights Reserved Reading location - IP/workstation name: [email or web address]
== END ==
LOC: RAD 13:11
PROVIDERS: ATTEND Internal Medicine Critical Care Medicine
DX: J98.4 Other disorders of lung (principal); R06.09 Other forms of dyspnea
CPT/HCPCS: 71250

== ENCOUNTER 2018-08-20 08:04 | Emergency (ER) | payer BC ==
[2018-08-20 09:00] LABS: ABSOLUTE BASOPHILS # (AUTO) 0.1 10^3/uL (0.0-0.2); ABSOLUTE EOSINOPHILS # (AUTO) 0.2 10^3/uL (0.0-0.6); ABSOLUTE LYMPHOCYTES (AUTO) 2.3 10^3/uL (0.5-4.7); ABSOLUTE MONOCYTES (AUTO) 0.4 10^3/uL (0.1-1.4); ABSOLUTE NEUT (AUTO) 3.2 10^3/uL (1.7-8.2); BASOPHILS % (AUTO) 0.9 % (0-2); EOSINOPHILS % (AUTO) 3.3 % (0-6); HEMATOCRIT 40.7 % (36.0-47.0); HEMOGLOBIN 14.1 g/dL (12.0-15.5); LYMPHOCYTES % (AUTO) 37.7 % (13-45); MEAN CORPUSCULAR HEMOGLOBIN 33.2 pg (27.0-33.4); MEAN CORPUSCULAR HGB CONC 34.6 g/dL (32.0-36.0); MEAN CORPUSCULAR VOLUME 96 fl (80-97); PLATELET COUNT 332 10^3/uL (150-450); RED BLOOD COUNT 4.24 10^6/uL (3.72-5.28); SEGMENTED NEUTROPHILS % (AUTO) 52.1 % (42-78); TOTAL CELLS COUNTED % (AUTO) 100 %; WHITE BLOOD COUNT 6.1 10^3/uL (4.0-10.5)
[2018-08-20 09:13] LABS: INTERNATIONAL RATION (INR) 1.01; PROTHROMBIN TIME 13.3 SEC (11.4-15.4)
--- NOTE | 2018-08-20 09:19 | RADIOLOGY REPORT (SQ) ---
EXAM DESCRIPTION: CHEST SINGLE VIEW COMPLETED DATE/TIME: 08/20/2018 9:08 am REASON FOR STUDY: Chest Pain COMPARISON: 05/14/2018. EXAM PARAMETERS: NUMBER OF VIEWS: One view. TECHNIQUE: Single frontal radiographic view of the chest acquired. RADIATION DOSE: NA LIMITATIONS: None. FINDINGS: LUNGS AND PLEURA: No opacities, masses or pneumothorax. No pleural effusion. MEDIASTINUM AND HILAR STRUCTURES: No masses. Contour normal. HEART AND VASCULAR STRUCTURES: Heart normal in size. Normal vasculature. BONES: No acute findings. Degenerative changes in the spine. HARDWARE: None in the chest. OTHER: No other significant finding. IMPRESSION: NO ACUTE RADIOGRAPHIC FINDING IN THE CHEST. TECHNICAL DOCUMENTATION: JOB ID: [id number] [employer]- All Rights Reserved Reading location - IP/workstation name: [email or web address]
[2018-08-20 09:20] LABS: ALANINE AMINOTRANSFERASE 17 U/L (9-52); ALBUMIN 4.2 g/dL (3.5-5.0); ALKALINE PHOSPHATASE 59 U/L (38-126); ANION GAP 9 (5-19); ASPARTATE AMINO TRANSFERASE 21 U/L (14-36); BILIRUBIN,DIRECT 0.1 mg/dL (0.0-0.4); BILIRUBIN,TOTAL 0.6 mg/dL (0.2-1.3); BLOOD UREA NITROGEN 12 mg/dL (7-20); CALCIUM 9.4 mg/dL (8.4-10.2); CARBON DIOXIDE 31 mmol/L (22-30); CHLORIDE 104 mmol/L (98-107); CREATINE KINASE 80 U/L (30-135); POTASSIUM 3.6 mmol/L (3.6-5.0); TOTAL PROTEIN 6.9 g/dL (6.3-8.2)
[2018-08-20 09:23] LABS: GLUCOSE 67 mg/dL (75-110)
[2018-08-20 09:30] LABS: CREATINE KINASE MB 0.87 ng/mL (<4.55)
[2018-08-20 09:34] LABS: TROPONIN I < 0.012 ng/mL
[2018-08-20 10:06] VITALS: BP 136/74
--- NOTE | 2018-08-20 10:07 | ER Document Report ---
Entered by ADONAY WHYTE SCRIBE 08/20/18 0914 Acting as scribe for:NIKI KILPATRICK MD ED General - General Chief Complaint: Chest Pain Stated Complaint: CHEST PAIN Time Seen by Provider: 08/20/18 08:57 Primary Care Provider: TIAN SMITH MD [Primary Care Provider] - Follow up as needed Notes: Patient is a 52-year-old female presenting to the emergency department complaining of chest pain. Patient states that the onset of this was the and that it has been intermittent. Patient states that she is taking nitroglycerin ointment, it relieved after a few hours. Patient states that she had a cardiac catheterization in May and that everything looked normal. TRAVEL OUTSIDE OF THE [place] IN LAST 30 DAYS: No - Related Data Allergies/Adverse Reactions: bacitracin [From Neosporin (cqr-cge-rkays)] Allergy (Intermediate, Verified 08/20/18 08:10) RED, PUFFY AT SITE latex Allergy (Intermediate, Verified 08/20/18 08:10) RED, SWELLS WITH PROLONGED CONTACT. neomycin [From Neosporin (bzc-zzx-bhmyy)] Allergy (Intermediate, Verified 08/20/18 08:10) RED, PUFFY AT SITE polymyxin B [From Neosporin (ybo-ryd-favea)] Allergy (Intermediate, Verified 08/20/18 08:10) RED, PUFFY AT SITE sulfamethoxazole [From Septra] Allergy (Intermediate, Verified 08/20/18 08:10) HIVES, INTCHING trimethoprim [From Septra] Allergy (Intermediate, Verified 08/20/18 08:10) HIVES, ITCHING adhesive tape Allergy (Mild, Verified 08/20/18 08:10) RED AND PEELS SKIN WITH PROLONGED CONTACT Past Medical History - General Information source: Patient - Social History Smoking Status: Never Smoker Cigarette use (# per day): No Chew tobacco use (# tins/day): No Frequency of alcohol use: None Drug Abuse: None Family History: CVA, Malignancy - Stomach cancer and brain cancer, Other - Congestive heart failure - Past Medical History Cardiac Medical History: Reports: Hx Heart Attack - 04/2014 STENT PLACEMENT UNSUCCESSFUL, Hx Hypercholesterolemia, Hx Hypertension - MEDICATED Pulmonary Medical History: Reports: Hx Asthma - NO HOSPITALIZATIONS Musculoskeletal Medical History: Reports Hx Arthritis, Reports Hx Fibromyalgia Psychiatric Medical History: Reports: Hx Depression Past Surgical History: Reports: Hx Breast Surgery - breast reduction, Hx Cardiac Catheterization - w/ failed stent, Hx Gastric Bypass Surgery, Hx Orthopedic Surgery - left shouldar, Other - Breast reduction - Immunizations Hx Diphtheria, Pertussis, Tetanus Vaccination: Yes Hx Pneumococcal Vaccination: 02/25/13 Review of Systems - Review of Systems Constitutional: No symptoms reported EENT: No symptoms reported Cardiovascular: See HPI, Chest pain Respiratory: No symptoms reported Gastrointestinal: No symptoms reported Genitourinary: No symptoms reported Female Genitourinary: No symptoms reported, Post menopausal - Patient had it in her early 30s Musculoskeletal: No symptoms reported Skin: No symptoms reported Hematologic/Lymphatic: No symptoms reported Neurological/Psychological: No symptoms reported -: Yes All other systems reviewed and negative Physical Exam - Vital signs Vitals: Temp Pulse Resp BP Pulse Ox 98.5 F 77 16 137/87 H 98 08/20/18 08:12 08/20/18 08:12 08/20/18 08:12 08/20/18 08:12 08/20/18 08:12 - Notes Notes: Physical Exam: General: Alert, obese. HEENT: Normocephalic. Atraumatic. PERRL. Extraocular movements intact. Oroph arynx clear. Neck: Supple. Non-tender. Respiratory: No respiratory distress. Clear and equal breath sounds bilaterally. Cardiovascular: Regular rate and rhythm. Chest: Sternum tenderness to palpation. Left-right anterior chest senior is mildly tender to palpation. Abdominal: Normal Inspection. Non-tender. No distension. Normal Bowel Sounds. Back: Non-tender. No deformity or step off. Extremities: Moves all four extremities. Upper extremities: Normal inspection. Normal ROM. Lower extremities: Normal inspection. No edema. Normal ROM. Neurological: Normal cognition. AAOx4. Normal speech. Psychological: Normal affect. Normal Mood. Skin: Warm. Dry. Normal color. Course - Vital Signs Vital signs: Temp Pulse Resp BP Pulse Ox 98.5 F 77 20 136/74 H 97 08/20/18 08:12 08/20/18 08:12 08/20/18 10:01 08/20/18 10:01 08/20/18 10:01 - Laboratory Result Diagrams: 08/20/18 08:42 08/20/18 08:42 Laboratory results interpreted by me: 08/20/18 08:42 Carbon Dioxide 31 H Glucose 67 L - Diagnostic Test Radiology reviewed: Image reviewed, Reports reviewed - Chest x-ray does not show acute cardiopulmonary process - EKG Interpretation by Me EKG shows normal: Sinus rhythm, [place], QRS Complexes. abnormal: Intervals - Borderline prolonged QT interval, ST-T Waves - Nonspecific anterior lateral T abnormalities Rate: Normal - 73 Rhythm: NSR When compared to previous EKG there are: No significant change Discharge - Discharge Clinical Impression: Chest wall pain Condition: Stable Disposition: HOME, SELF-CARE Additional Instructions: Chest Wall Pain Your chest pain has been diagnosed as coming from the chest wall. This is often caused by straining the muscles or joints in the chest during physical activity, direct trauma, coughing, or vigorous vomiting. Persons with arthritis are especially prone to this type of pain, due to inflammation of the cartilage joints near the breast bone. Occasionally, no cause can be found. Rest from strenuous physical activity. This kind of chest pain is usually made worse by movement of the chest. Depending on the symptoms, we may prescribe medicine for pain, muscle relaxation, and antiinflammatory effects. If the pain is new, and seems to be due to muscle strain, cold packs can help. Otherwise, apply gentle warmth to the painful area for 15 minutes every hour or two. You should contact the doctor immediately if things change. Further evaluation is needed if you develop a fever or cough, if the nature of the pain changes, or if you become short of breath. Follow-up with your primary care provider and your manuscripts archivist if you continue to have chest pains. RETURN TO THE EMERGENCY ROOM IF ANY NEW OR WORSENING SYMPTOMS. Referrals: TIAN SMITH MD [Primary Care Provider] - Follow up as needed Scribulisses Attestation: 08/20/18 10:07 I personally performed the services described in the documentation, reviewed and edited the documentation which was dictated to the scribe in my presence, and it accurately records my words and actions. I personally performed the services described in the documentation, reviewed and edited the documentation which was dictated to the scribe in my presence, and it accurately records my words and actions.
--- NOTE | 2018-08-20 22:12 | EKG REPORT ---
SEVERITY:- ABNORMAL ECG - SINUS RHYTHM NONSPECIFIC T ABNORMALITIES, ANT-LAT LEADS BORDERLINE PROLONGED QT INTERVAL : Confirmed by: Lilly Desai 20-Aug-2018 22:11:34
== END 2018-08-20 10:21 | disposition home or self-care (01) ==
LOC: ER 08:04
DX: R07.89 Other chest pain (principal); I10 Essential (primary) hypertension; I25.2 Old myocardial infarction; J45.909 Unspecified asthma, uncomplicated; Z88.3 Allergy status to other anti-infective agents; Z91.040 Latex allergy status; Z91.048 Other nonmedicinal substance allergy status; Z88.1 Allergy status to other antibiotic agents
CPT/HCPCS: 36415; 71045; 80053; 82550; 82553; 84484; 85025; 85610; 93005; 93010; 99285

== ENCOUNTER → 2018-10-01 | Outpatient (CLI) | payer BC ==
[2018-10-01 13:22] LABS: TRIGLYCERIDES 126 mg/dL (<150)
[2018-10-01 13:35] LABS: DIRECT LDL 71 mg/dL (<100)
== END ==
LOC: OD 12:28
PROVIDERS: ATTEND Internal Medicine Cardiovascular Disease
DX: E78.5 Hyperlipidemia, unspecified (principal)
CPT/HCPCS: 36415; 80061

== ENCOUNTER → 2019-04-09 | Outpatient (CLI) | payer BC ==
[2019-04-09 14:29] LABS: HEMATOCRIT 39.2 % (36.0-47.0); HEMOGLOBIN 13.8 g/dL (12.0-15.5); MEAN CORPUSCULAR HEMOGLOBIN 33.8 pg (27.0-33.4); MEAN CORPUSCULAR HGB CONC 35.2 g/dL (32.0-36.0); MEAN CORPUSCULAR VOLUME 96 fl (80-97); PLATELET COUNT 307 10^3/uL (150-450); RED BLOOD COUNT 4.09 10^6/uL (3.72-5.28); RED CELL DISTRIBUTION WIDTH 11.9 % (11.5-14.0)
[2019-04-09 14:52] LABS: ALBUMIN 3.8 g/dL (3.5-5.0); ALKALINE PHOSPHATASE 54 U/L (38-126); ASPARTATE AMINO TRANSFERASE 27 U/L (14-36); BILIRUBIN,TOTAL 0.6 mg/dL (0.2-1.3); BLOOD UREA NITROGEN 11 mg/dL (7-20); CALCIUM 9.5 mg/dL (8.4-10.2); CHOLESTEROL 191.85 mg/dL (0-200); GLUCOSE 82 mg/dL (75-110); POTASSIUM 4.1 mmol/L (3.6-5.0); TOTAL PROTEIN 6.5 g/dL (6.3-8.2); TRIGLYCERIDES 195 mg/dL (<150)
[2019-04-09 15:03] LABS: DIRECT LDL 132 mg/dL (<100)
[2019-04-09 15:20] LABS: CARBON DIOXIDE 30 mmol/L (22-30); CHLORIDE 105 mmol/L (98-107)
[2019-04-09 15:24] LABS: ANION GAP 6 (5-19)
[2019-04-10 15:14] LABS: VITAMIN D 1,25 DIHYDROXY 59.1 pg/mL (19.9-79.3)
== END ==
LOC: OD 13:35
PROVIDERS: ATTEND Internal Medicine Cardiovascular Disease
DX: R06.09 Other forms of dyspnea (principal); E78.5 Hyperlipidemia, unspecified; E55.9 Vitamin D deficiency, unspecified; R53.83 Other fatigue
CPT/HCPCS: 36415; 80053; 80061; 82652; 83880; 84436; 84443; 85027

== ENCOUNTER → 2019-04-15 | Outpatient (CLI) | payer BC ==
--- NOTE | 2019-04-17 17:08 | WOMENS IMAGING REPORT ---
EXAM DESCRIPTION: 3D DX MAMMO BILAT; U/S BREAST UNILAT LIMITED COMPLETED DATE/TIME: 04/15/2019 7:38 am; 04/15/2019 8:18 am REASON FOR STUDY: N63.0 UNSPECIFIED LUMP IN UNSPECIFIED BREAST,N64.4 MASTODYNIA; LT BREAST N63.0 N63 .0 UNSPECIFIED LUMP IN UNSPECIFIED BREAST N64.4 MASTODYNIA COMPARISON: 01/02/2019 EXAM PARAMETERS: Standard craniocaudal and mediolateral oblique views of each breast recorded using digital acquisition and breast tomosynthesis. Left breast ultrasound. Read with the assistance of CAD: .[employer] Version 9.2 LIMITATIONS: None. FINDINGS: RIGHT BREAST MASSES: No suspicious masses. CALCIFICATIONS: Scattered benign calcifications. ARCHITECTURAL DISTORTION: None. ASYMMETRY: None noted. OTHER: No other significant findings. LEFT BREAST MASSES: There is a stable round mass with well-circumscribed margins in the left lower breast approxi mately 6- 7 o'clock position. . CALCIFICATIONS: Scattered benign calcifications. ARCHITECTURAL DISTORTION: None. ASYMMETRY: Focal asymmetry in the upper-outer quadrant left breast is also stable. OTHER: No other significant finding. Patient was taken ultrasound for further evaluation of the left breast. At the 6 o'clock position allison bareolar region there is a well-circumscribed hypoechoic mass with dirty shadowing, consistent with a benign oil cyst. This corresponds with the mammographic finding. The outer quadrant of the left br east was also scanned in the area of asymmetric density. There is normal appearing breast tissue. N o solid or cystic mass. No area of echogenic shadowing. IMPRESSION: Stable benign mass in the left breast consistent with an oil cyst or postoperative serom a. No sonographic or mammographic evidence of malignancy. BREAST DENSITY: b. There are scattered areas of fibroglandular density. BIRAD: ASSESSMENT: 2 Benign findings. RECOMMENDATION: RECOMMENDED FOLLOW UP: Birads 1 or 2: The patient should resume routine screening . SPECIFIC INTERVENTION/IMAGING/CONSULTATION RECOMMENDED:No additional intervention/ imaging/consultati on needed at this time. COMMUNICATION:The imaging findings were not discussed with the patient. Her referring provider has be en notified of the findings. COMMENT: The patient has been notified of the results by letter per MQSA requirements. Additional no tification policies are in place for contacting patient with suspicious or incomplete findings. Quality ID #[id number]: The [employer] recommends an annual screening mammogram for women aged 40 years or over. This facility utilizes a reminder system to ensure that all patients receive reminder letters, and/or direct phone calls for appointments. This includes reminders for routine scr eening mammograms, diagnostic mammograms, or other Breast Imaging Interventions when appropriate. Th is patient will be placed in the appropriate reminder system. TECHNICAL DOCUMENTATION: FINDING NUMBER: (1) ASSESSMENT: (1) JOB ID: [id number] 2010 [employer]- All Rights Reserved Reading location - IP/workstation name: [email or web address]
--- NOTE | 2019-04-17 17:08 | WOMENS IMAGING REPORT ---
EXAM DESCRIPTION: 3D DX MAMMO BILAT; U/S BREAST UNILAT LIMITED COMPLETED DATE/TIME: 04/15/2019 7:38 am; 04/15/2019 8:18 am REASON FOR STUDY: N63.0 UNSPECIFIED LUMP IN UNSPECIFIED BREAST,N64.4 MASTODYNIA; LT BREAST N63.0 N63 .0 UNSPECIFIED LUMP IN UNSPECIFIED BREAST N64.4 MASTODYNIA COMPARISON: 01/02/2019 EXAM PARAMETERS: Standard craniocaudal and mediolateral oblique views of each breast recorded using digital acquisition and breast tomosynthesis. Left breast ultrasound. Read with the assistance of CAD: .[employer] Clip Wrapper Version 9.2 LIMITATIONS: None. FINDINGS: RIGHT BREAST MASSES: No suspicious masses. CALCIFICATIONS: Scattered benign calcifications. ARCHITECTURAL DISTORTION: None. ASYMMETRY: None noted. OTHER: No other significant findings. LEFT BREAST MASSES: There is a stable round mass with well-circumscribed margins in the left lower breast approxi mately 6- 7 o'clock position. . CALCIFICATIONS: Scattered benign calcifications. ARCHITECTURAL DISTORTION: None. ASYMMETRY: Focal asymmetry in the upper-outer quadrant left breast is also stable. OTHER: No other significant finding. Patient was taken ultrasound for further evaluation of the left breast. At the 6 o'clock position allison bareolar region there is a well-circumscribed hypoechoic mass with dirty shadowing, consistent with a benign oil cyst. This corresponds with the mammographic finding. The outer quadrant of the left br east was also scanned in the area of asymmetric density. There is normal appearing breast tissue. N o solid or cystic mass. No area of echogenic shadowing. IMPRESSION: Stable benign mass in the left breast consistent with an oil cyst or postoperative serom a. No sonographic or mammographic evidence of malignancy. BREAST DENSITY: b. There are scattered areas of fibroglandular density. BIRAD: ASSESSMENT: 2 Benign findings. RECOMMENDATION: RECOMMENDED FOLLOW UP: Birads 1 or 2: The patient should resume routine screening . SPECIFIC INTERVENTION/IMAGING/CONSULTATION RECOMMENDED:No additional intervention/ imaging/consultati on needed at this time. COMMUNICATION:The imaging findings were not discussed with the patient. Her referring provider has be en notified of the findings. COMMENT: The patient has been notified of the results by letter per MQSA requirements. Additional no tification policies are in place for contacting patient with suspicious or incomplete findings. Quality ID #[id number]: The [employer] recommends an annual screening mammogram for women aged 40 years or over. This facility utilizes a reminder system to ensure that all patients receive reminder letters, and/or direct phone calls for appointments. This includes reminders for routine scr eening mammograms, diagnostic mammograms, or other Breast Imaging Interventions when appropriate. Th is patient will be placed in the appropriate reminder system. TECHNICAL DOCUMENTATION: FINDING NUMBER: (1) ASSESSMENT: (1) JOB ID: [id number] 2010 [employer]- All Rights Reserved Reading location - IP/workstation name: [email or web address]
== END ==
LOC: WI 07:44
PROVIDERS: ATTEND Internal Medicine
DX: N63.0 Unspecified lump in unspecified breast (principal); N64.4 Mastodynia
CPT/HCPCS: 76642; 77066; G0279; 77062

== ENCOUNTER 2019-07-14 20:04 | Emergency (ER) | payer BC ==
[2019-07-14 21:12] LABS: ABSOLUTE EOSINOPHILS # (AUTO) 0.2 10^3/uL (0.0-0.6); ABSOLUTE LYMPHOCYTES (AUTO) 3.2 10^3/uL (0.5-4.7); ABSOLUTE MONOCYTES (AUTO) 0.3 10^3/uL (0.1-1.4); ABSOLUTE NEUT (AUTO) 2.6 10^3/uL (1.7-8.2); BASOPHILS % (AUTO) 0.7 % (0-2); EOSINOPHILS % (AUTO) 2.7 % (0-6); HEMATOCRIT 41.9 % (36.0-47.0); LYMPHOCYTES % (AUTO) 49.9 % (13-45); MEAN CORPUSCULAR HEMOGLOBIN 34.3 pg (27.0-33.4); MEAN CORPUSCULAR HGB CONC 35.7 g/dL (32.0-36.0); MEAN CORPUSCULAR VOLUME 96 fl (80-97); MONOCYTES % (AUTO) 5.5 % (3-13); PLATELET COUNT 329 10^3/uL (150-450); RED BLOOD COUNT 4.36 10^6/uL (3.72-5.28); RED CELL DISTRIBUTION WIDTH 12.3 % (11.5-14.0); SEGMENTED NEUTROPHILS % (AUTO) 41.2 % (42-78); TOTAL CELLS COUNTED % (AUTO) 100 %; WHITE BLOOD COUNT 6.4 10^3/uL (4.0-10.5)
[2019-07-14] MEDS ORDERED: ASPIRIN 81 MG TABLET, CHEWABLE PO ONE (21:22)
[2019-07-14] MEDS ORDERED: FAMOTIDINE 20 MG TABLET PO ONE (21:22)
[2019-07-14 21:28] LABS: ALBUMIN 4.6 g/dL (3.5-5.0); ALKALINE PHOSPHATASE 60 U/L (38-126); ANION GAP 8 (5-19); ASPARTATE AMINO TRANSFERASE 23 U/L (14-36); BILIRUBIN,TOTAL 0.6 mg/dL (0.2-1.3); BLOOD UREA NITROGEN 12 mg/dL (7-20); CALCIUM 9.6 mg/dL (8.4-10.2); CARBON DIOXIDE 28 mmol/L (22-30); CHLORIDE 105 mmol/L (98-107); CREATINE KINASE 97 U/L (30-135); GLUCOSE 99 mg/dL (75-110); POTASSIUM 3.4 mmol/L (3.6-5.0); TOTAL PROTEIN 7.8 g/dL (6.3-8.2)
[2019-07-14 21:38] LABS: CREATINE KINASE MB 0.88 ng/mL (<4.55); TROPONIN I < 0.012 ng/mL
--- NOTE | 2019-07-14 21:45 | ER Document Report ---
ED Cardiac - General Chief Complaint: Chest Pain Stated Complaint: CHEST PAIN Time Seen by Provider: 07/14/19 21:05 Notes: Patient is a 53-year-old female that comes to the emergency department for chief complaint of chest pain. Patient states she woke up this morning with pain in the center of her chest, she states that intermittently she will have sharp pain, she also has burning pain, she has had this throughout the day, she also states that she has had this intermittently on a daily basis for the past 4 weeks. Patient states that intermittently she will get nausea, occasionally feels vaguely short of breath, and occasionally feel lightheaded. She denies any of the symptoms at this time, denies chest pain at this time. Patient has a past medical history including IA, she had a cardiac cath in 2014 and in May 2018, she states both times they told her in [place] that she had 2 small of coronary arteries to have stents, medical management is for treatment for her IA and CAD, she states last resort would be CABG and this is not recommended yet. She also states she has chronic chest wall pain and is treated with colchicine and allopurinol for this. Patient also reports a history of cholecystectomy and gastric sleeve. TRAVEL OUTSIDE OF THE [place] IN LAST 30 DAYS: No - Related Data Allergies/Adverse Reactions: bacitracin [From Neosporin ([id number])] Allergy (Intermediate, Verified 07/14/19 20:45) RED, PUFFY AT SITE latex Allergy (Intermediate, Verified 07/14/19 20:45) RED, SWELLS WITH PROLONGED CONTACT. neomycin [From Neosporin ([id number])] Allergy (Intermediate, Verified 07/14/19 20:45) RED, PUFFY AT SITE polymyxin B [From Neosporin ([id number])] Allergy (Intermediate, Verified 07/14/19 20:45) RED, PUFFY AT SITE sulfamethoxazole [From Septra] Allergy (Intermediate, Verified 07/14/19 20:45) HIVES, INTCHING trimethoprim [From Septra] Allergy (Intermediate, Verified 07/14/19 20:45) HIVES, ITCHING adhesive tape Allergy (Mild, Verified 07/14/19 20:45) RED AND PEELS SKIN WITH PROLONGED CONTACT Past Medical History - General Information source: Patient - Social History Smoking Status: Never Smoker Chew tobacco use (# tins/day): No Frequency of alcohol use: None Drug Abuse: None Lives with: Family Family History: CVA, Malignancy, Other Patient has homicidal ideation: No - Past Medical History Cardiac Medical History: Reports: Hx Heart Attack - 04/2014 STENT PLACEMENT UNSUCCESSFUL, Hx Hypercholesterolemia, Hx Hypertension - MEDICATED Pulmonary Medical History: Reports: Hx Asthma - NO HOSPITALIZATIONS Neurological Medical History: Denies: Hx Cerebrovascular Accident, Hx Seizures Renal/ Medical History: Denies: Hx Peritoneal Dialysis GI Medical History: Denies: Hx Hepatitis, Hx Hiatal Hernia, Hx Ulcer Musculoskeletal Medical History: Reports Hx Arthritis, Reports Hx Fibromyalgia Psychiatric Medical History: Reports: Hx Depression Infectious Medical History: Denies: Hx Hepatitis Past Surgical History: Reports: Hx Abdominal Surgery - gastric sleeve, Hx Breast Surgery - breast reduction, Hx Cardiac Catheterization - w/ failed stent, Hx Cholecystectomy, Hx Gastric Bypass Surgery, Hx Orthopedic Surgery - left mamie uldar, Hx Tonsillectomy, Other - Breast reduction. Denies: Hx Hysterectomy, Hx Mastectomy, Hx Open Heart Surgery, Hx Pacemaker - Immunizations Hx Diphtheria, Pertussis, Tetanus Vaccination: Yes Hx Pneumococcal Vaccination: 02/25/13 Review of Systems - Review of Systems Constitutional: No symptoms reported EENT: No symptoms reported Cardiovascular: See HPI Respiratory: See HPI Gastrointestinal: See HPI Genitourinary: No symptoms reported Female Genitourinary: No symptoms reported Musculoskeletal: No symptoms reported Skin: No symptoms reported Hematologic/Lymphatic: No symptoms reported Neurological/Psychological: No symptoms reported Physical Exam - Vital signs Vitals: Resp Pulse Ox 20 100 07/14/19 20:32 07/14/19 20:32 - Notes Notes: GENERAL: Alert, interacts well. No acute distress. HEAD: Normocephalic, atraumatic. EYES: Pupils equal, round, and reactive to light. Extraocular movements intact. ENT: Oral mucosa moist, tongue midline. Oropharynx unremarkable. Airway patent. NECK: Full range of motion. Supple. Trachea midline. No lymphadenopathy. LUNGS: Clear to auscultation bilaterally, no wheezes, rales, or rhonchi. No respiratory distress. Non-tender chest wall. HEART: Regular rate and rhythm. No murmur ABDOMEN: Soft, non-tender. Non-distended. EXTREMITIES: Moves all 4 extremities spontaneously. No edema, normal radial and dorsalis pedis pulses bilaterally. No cyanosis. BACK: no cervical, thoracic, lumbar midline tenderness. No saddle anesthesia, normal distal neurovascular exam. Moves all extremities in full range of motion. NEUROLOGICAL: Alert and oriented x3. Normal speech. Cranial nerves II through XII grossly intact. Strength 5/5 in all extremities. PSYCH: Normal affect, normal mood. SKIN: Warm, dry, normal turgor. No rashes or lesions noted. Course - Re-evaluation Re-evalutation: Patient smiling and well-appearing on my exam, currently she has no symptoms. Unremarkable physical exam, unremarkable vital signs. EKG with no changes from prior. Chest x-ray unremarkable. CBC, chemistry, lipase unremarkable. Initial troponin negative. I reevaluated patient. She states she started to have burning pain in her upper abdomen and in her chest again. She was given a GI cocktail, afterwards this resolved. On reevaluation second opponent is negative. I reevaluated patient. Based on her work-up, age, risk factors her heart score is 3. I did discuss potential admission however because of her reported history, however this was declined. Patient has both gastroenterology and cardiology follow-up. I discussed with patient how I suspect most strongly that this is gastrointestinal especially with her history of gastric bypass, not being on any antacid therapy, and based on her symptom resolution with treatment. Patient is also had symptoms for 4 weeks now. Discussed precautions, diet, medications, follow-up, and return precautions in detail. Patient states understanding and agreement. Asymptomatic, stable, well-appearing at time of discharge. - Vital Signs Vital signs: Temp Pulse Resp BP Pulse Ox 97.9 F 20 140/85 H 97 07/14/19 21:01 07/15/19 01:01 07/15/19 01:00 07/15/19 01:01 - Laboratory Result Diagrams: 07/14/19 20:34 07/14/19 20:34 Laboratory results interpreted by me: 07/14/19 07/14/19 20:34 20:34 MCH 34.3 H Lymph % (Auto) 49.9 H Seg Neutrophils % 41.2 L Potassium 3.4 L - EKG Interpretation by Me Additional EKG results interpreted by me: EKG shows sinus rhythm at a rate of 60, flattened T waves inferiorly and borderline T waves anteriorly, normal axis, no T wave inversions or ST segment changes in consecutive leads, QTC of 416. No significant change from prior. Discharge - Discharge Clinical Impression: Upper abdominal pain Chest pain Qualifiers: Chest pain type: unspecified Qualified Code(s): R07.9 - Chest pain, unspecified Condition: Stable Disposition: HOME, SELF-CARE Additional Instructions: Your work-up tonight does not show any concerning changes or findings. Based on your symptoms along with history of gastric surgery I suspect your pain is mostly from your upper gastrointestinal tract. I recommend the medications as prescribed, avoid alcohol, smoking, caffeine, spicy food, NSAIDs. Call your bankruptcy paralegal and your diesel mechanic farm tomorrow for close follow-up with both. Return if you worsen including severe worsening pain, passing out, vomiting, vomiting blood, black stools, fever, or any other concerning symptoms. Prescriptions: Sucralfate [Carafate 1 gm Tablet] 1 gm PO QID #20 tablet Famotidine [Pepcid 20 mg Tablet] 20 mg PO BID #14 tablet
--- NOTE | 2019-07-14 23:07 | RADIOLOGY REPORT (SQ) ---
CLINICAL INDICATION: chest pain. TECHNIQUE: A single portable AP view was obtained of the chest at 2222 hours. COMPARISON: August 20, 2018. FINDINGS: The cardiomediastinal silhouette is top normal. The lungs are grossly clear. No evidence of effusion or pneumothorax. The visualized bones are unremarkable. IMPRESSION: No evidence of active intrathoracic disease.
[2019-07-15] MEDS ORDERED: METOCLOPRAMIDE HCL ORAL SOLN 10 MG/10 ML UDCUP PO ONE (00:08)
[2019-07-15] MEDS ORDERED: MAG HYDROX/AL HYDROX/SIMETH SUSP 30 ML UDCUP PO ONE (00:08)
[2019-07-15] MEDS ORDERED: LIDOCAINE 2% VISCOUS SOLN 15 ML UDCUP PO ONE (00:08)
[2019-07-15 01:43] VITALS: BP 140/85
--- NOTE | 2019-07-15 07:52 | EKG REPORT ---
SEVERITY:- ABNORMAL ECG - SINUS RHYTHM NONSPECIFIC T ABNORMALITIES, ANT-LAT LEADS : Confirmed by: Kelsy Davis MD 15-Jul-2019 07:51:24
== END 2019-07-15 02:23 | disposition home or self-care (01) ==
LOC: ER 20:04
DX: R07.9 Chest pain, unspecified (principal); R10.10 Upper abdominal pain, unspecified; R11.0 Nausea; R06.02 Shortness of breath; R42 Dizziness and giddiness; R07.89 Other chest pain; G89.29 Other chronic pain; I25.2 Old myocardial infarction; I25.10 Atherosclerotic heart disease of native coronary artery without angina pectoris; Z79.899 Other long term (current) drug therapy; Z90.49 Acquired absence of other specified parts of digestive tract; Z98.84 Bariatric surgery status; Z88.8 Allergy status to other drugs, medicaments and biological substances; I10 Essential (primary) hypertension
CPT/HCPCS: 93005; 99285; 36415; 82553; 82550; 83690; 85025; 80053; 84484; 71045; 93010; J3490